=== PATIENT | female | born 1945 | race Caucasian/White ===

== ENCOUNTER 2019-03-14 10:34 | Outpatient (CLI) | payer MEDICARE, OTHER, SELFPAY | END 2019-03-14 10:35 | disposition home or self-care (01) | LOC: ANHLAB 10:39 | PROVIDERS: PCP Family Medicine; Visit Provider Physician Assistant | DX: R31.9 Hematuria, unspecified (principal) | CPT/HCPCS: 87086; 87088 ==

== ENCOUNTER 2019-03-21 12:20 | Emergency (ER) | payer MEDICARE, OTHER, SELFPAY ==
--- NOTE | ~2019-03-21 | XR_ITS ---
EXAMINATION: XR chest 2V EXAM DATE: 03/21/2019 12:51 INDICATION: Cough and shortness of breath. Nonproductive cough. TECHNIQUE: Frontal and lateral projections of the chest obtained and reviewed. Comparison is made to prior examination from 12/01/2018. FINDINGS: The lungs are clear. There are no pleural effusions. The cardiomediastinal silhouette is within normal limits. There is no pneumothorax suspected. The bones and soft tissues are unremarkab le. There are cholecystectomy clips. IMPRESSION: Unremarkable chest x-ray exam. Reviewed, dictated and finalized at location A. GER DIESEL
--- NOTE | 2019-03-21 12:33 | ED.URI ---
HPI - URI/Sore Throat General Chief Complaint: Upper Respiratory Infection Stated Complaint: cough/congestion Time Seen by Provider: 03/21/19 12:33 Source: patient and RN notes reviewed History of Present Illness HPI Narrative: Patient is a 73-year-old female presents the urgent care with complaints of persistent nonproductive cough for 10 days, congestion, intermittent shortness of breath with coughing fits and headache. Patient states she is also experienced a lot of sneezing. Patient is very adamant about ruling out pneumonia. Denies any chest pain or fever. Patient also started on the lisinopril on February 22 and states that she has not followed up with her PCP regarding the persistent cough. Patient also reports of moderate fatigue. Has been using Mucinex and Tylenol. No other acute complaints. No acute distress noted. Patient read the plan of care. Related Data Home Medications Medication Instructions Recorded Confirmed aspirin 81 mg tablet,delayed 81 mg PO DAILY 02/22/19 03/21/19 release sertraline 50 mg tablet 50 mg PO DAILY 02/22/19 03/21/19 Allergies Allergy/AdvReac Type Severity Reaction Status Date / Time No Known Allergies Allergy Verified 03/21/19 12:38 Review of Systems Review of Systems: Narrative: CONSTITUTIONAL: Denies fever, chills, or sweats. EYES: Denies visual changes, redness, or discharge. ENT: Reports a mild sore throat and sinus congestion CARDIOVASCULAR: Denies chest pain, palpitations, or edema. RESPIRATORY: Reports a persistent nonproductive cough with intermittent dyspnea during coughing fits GASTROINTESTINAL: Denies abdominal pain, nausea, vomiting, or diarrhea. GENITOURINARY: Denies dysuria or hematuria. SKIN: Denies rash or itching. MUSCULOSKELETAL: Denies back pain, joint pain, or myalgia. NEUROLOGIC: Reports of headache All other systems reviewed are negative, except as documented in HPI. [facility] Family History Family History (Updated 09/11/15 @ 23:21 by DOCTOR UNKNOWN) Sibling Patient's sister is in good health Patient's brother is in good health Family history of diabetes mellitus in first degree relative Family history of lung cancer Family history of malignant neoplasm of breast in first degree relative Father Family history of alcoholism Family history of coronary artery disease Mother Family history of pancreatic cancer Family history of diabetes mellitus in first degree relative Other Diabetes mellitus Hypertension Social History Social History Smoking status: Never smoker Smoking end date: 02/14/80 Alcohol intake: never Comments At the time of my signature, I reviewed and agree with the nursing past medical, surgical, social, and family history. There is no relevant family history pertinent to the patient complaint. Exam Narrative: Exam Narrative: GENERAL: This is a well-nourished, well-developed patient, in no apparent distress. HEAD: normocephalic, atraumatic. EYES: PERRL. Sclera clear/white. Vision is grossly intact. EARS: External ears normal, auditory canals clear and without drainage, bilateral cerumen noted, TMs normal without perforation. Hearing grossly intact. NOSE: External nose normal with no obvious nasal discharge, nares without redness, no rhinorrhea. THROAT: Mucous membranes moist, posterior pharynx clear. Moderate erythema noted posterior oropharynx without exudate or ulceration. NECK: Neck supple CARDIOVASCULAR: Regular rate and rhythm without murmurs, gallops, or rubs. RESPIRATORY: Clear to auscultation. Slightly diminished right lower lobe. No wheezes, rales, or rhonchi. SKIN: warm, intact with no suspicious lesions or rash, good texture and turgor. NEURO: awake, alert, and oriented to person, place and time. There were no obvious focal neurologic abnormalities. EXTREMITIES: No clubbing, cyanosis, or edema. Course Vital Signs Vital signs: Vital Signs Temperature 99.2 F 03/21/19 12:35 Pulse Rate 73 03/21
[2019-03-21 12:35] VITALS: BP 136/50; PULSE 73; RESP 20; TEMP 37.3; O2SAT 96
== END 2019-03-21 13:14 | disposition home or self-care (01) ==
PROVIDERS: Emergency Provider Nurse Practitioner Family; PCP Family Medicine
DX: T46.4X5A Adverse effect of angiotensin-converting-enzyme inhibitors, initial encounter (principal); I10 Essential (primary) hypertension
CPT/HCPCS: 71046; 99213; G0463

== ENCOUNTER 2019-06-06 12:11 | Emergency (ER) | payer MEDICARE, OTHER, SELFPAY ==
--- NOTE | ~2019-06-06 | XR_ITS ---
EXAMINATION: XR chest 1V portable INDICATION: Shortness of breath and fever TECHNIQUE: Portable AP chest at 1306 hours COMPARISON: 03/21/2019 FINDINGS: The lungs are free of acute opacities. There is no pleural effusion or pneumothorax. The ca rdiomediastinal silhouette is normal. The visualized osseous structures are unremarkable. Cholecystec yamilex clips are noted in the right upper quadrant. IMPRESSION: 1. No acute cardiopulmonary abnormality. Reviewed, dictated and finalized at location A.
[2019-06-06 12:17] VITALS: BP 154/85; PULSE 94; RESP 18; TEMP 36.9; O2SAT 98
[2019-06-06 12:23] VITALS: RESP 16
--- NOTE | 2019-06-06 12:50 | ED.SOB ---
HPI - SOB/Dyspnea General Chief Complaint: Shortness of Breath/Dyspnea Stated Complaint: cough, short of breath, sore throat, pneumonia Time Seen by Provider: 06/06/19 12:22 Source: patient Mode of arrival: ambulatory Limitations: no limitations History of Present Illness HPI Narrative: This is a 73 year old female that presents to the ER for cough and shortness of breath x 1 week. Reports a cough a couple of weeks ago for which she was treated with antibiotics with improvement. Reports again last week she had a fever and then started to have a cough. Reports associated shortness of breath and a sore throat. Denies chest pain, abdominal pain, vomiting, dysuria or hematuria. Related Data Home Medications Medication Instructions Recorded Confirmed aspirin 81 mg tablet,delayed 81 mg PO DAILY 02/22/19 03/21/19 release multivitamin 1 tablet PO DAILY 04/09/19 gabapentin 100 mg capsule 100 mg PO TID 05/29/19 Allergies Allergy/AdvReac Type Severity Reaction Status Date / Time HERMINIA Inhibitors AdvReac Mild cough Verified 06/06/19 12:21 Review of Systems Review of Systems: Narrative: CONSTITUTIONAL: Reports fever ENT: Reports rhinorrhea, congestion, sore throat CARDIOVASCULAR: Denies chest pain RESPIRATORY: Reports cough and dyspnea. GASTROINTESTINAL: Denies abdominal pain, nausea, vomiting, or diarrhea. GENITOURINARY: Denies dysuria or hematuria. All systems reviewed & are unremarkable except as noted in HPI and below PMFSH Past Medical History Medical History (Updated 06/06/19 @ 14:23 by Ilana Pritchett PA-C) Anxiety HTN (hypertension) RLS (restless legs syndrome) Surgical History Surgical History (Updated 04/10/19 @ 10:08 by Drake Briones MD) History of cholecystectomy History of hysterectomy with bilateral oophorectomy Status post right hip replacement Social History Social History Smoking packs per day: 1 Smoking cigarettes per day: 20.0 Years smoked: 8 Smoking pack-years: 8.00 Smoking status: Former smoker Tobacco type: cigarettes Second hand tobacco smoke exposure: No Smoking end date: 02/14/80 Alcohol intake: never Substance use: never Substance use type: does not use Gender identity (if verbalized by the patient): Female Exam Narrative: Exam Narrative: GENERAL: Elderly, well-nourished, and in no acute distress. HEAD: Normocephalic, atraumatic. EYES: EOMI. ENT: Nares clear, no rhinorrhea or epistaxis. Mucous membranes moist. Oropharynx without tonsillar hypertrophy exudate or other lesions. Bilateral TMs pearly arzate non-bulging NECK: Supple. No adenopathy or masses. CHEST: No respiratory distress. Mild scattered wheezes. No rales or rhonchi HEART: Regular rate and rhythm. No murmur heard. Normal peripheral pulses. EXTREMITIES: Normal range of motion. No edema. SKIN: Warm, dry, no rash. NEURO: No focal deficits. Alert and oriented x3. PSYCH: Normal mood and affect Course Vital Signs Vital signs: Vital Signs Temperature 98.5 F 06/06/19 12:17 Pulse Rate 94 06/06/19 12:17 Respiratory Rate 18 06/06/19 12:17 Blood Pressure 154/85 H 06/06/19 12:17 Pulse Oximetry 98 06/06/19 12:17 Temperature 98.5 F 06/06/19 12:17 Pulse Rate 94 06/06/19 12:17 Respiratory Rate 16 06/06/19 12:23 Blood Pressure 154/85 H 06/06/19 12:17 Pulse Oximetry 98 06/06/19 12:17 MDM - SOB/Dyspnea MDM Narrative Medical decision making narrative: Patient presents to the emergency department for cough and shortness of breath x1 week. Patient is afebrile and nontoxic-appearing. Normal saturation on room air. CBC and metabolic panel are without acute changes. Chest x-ray is without acute findings. Patient does have some mild wheezes on exam. Will treat patient with steroid and albuterol for acute bronchitis. She is to follow-up with primary care doctor. She was given warnings to return to the ER Lab Data At
[2019-06-06 13:22] LABS: Basophils Percent Auto 0.4 % (0.2-1.2); Eosinophils Absolute Auto 0.3 K/mm3 (0-0.3); Hematocrit 38.9 % (37.0-47.0); Hemoglobin 13.3 g/dL (12.0-15.0); Immature Granulocyte Absolute 0.04 K/mm3 (0.00-0.031); Immature Granulocyte Percent A 0.5 % (0-0.5); Lymphocytes Percent Auto 35.9 % (18.3-44.2); Mean Corpuscular HGB Conc 34.2 g/dl (32-36); Mean Corpuscular Hemoglobin 29.6 pg (26-34); Mean Corpuscular Volume 86.4 fl (80-100); Mean Platelet Volume 9.9 fl (7.4-10.4); Monocytes Absolute Auto 0.6 K/mm3 (0.1-0.6); Monocytes Percent Auto 7.4 % (2.6-8.5); Neutrophils Absolute Auto 4.4 K/mm3 (1.3-6.7); Neutrophils Percent Auto 52.8 % (45.5-73.1); Platelet Count Result 280 k/mm3 (150-375); Red Cell Distribution Width 12.5 % (11.5-14.5); White Blood Count 8.4 K/mm3 (4.5-10.0)
[2019-06-06 13:38] LABS: Alanine Aminotransferase 28 U/L (4-35); Albumin Level 4.2 g/dL (3.5-5.1); Alkaline Phosphatase 149 U/L (38-126); Aspartate Amino Transferase 29 U/L (14-36); Bilirubin,Total 0.5 mg/dL (0.2-1.3); Blood Urea Nitrogen 22 mg/dL (7-17); CRP 1.2 mg/dL (<1.0); Calcium 8.8 mg/dL (8.4-10.2); Carbon Dioxide 23 mmol/L (22-30); Chloride 109 mmol/L (98-107); Estimated CRCL calculation 82 ml/min; Estimated Glomerular Filt Rate > 60; Glucose 121 mg/dL (65-105); Lactate Dehydrogenase 427 U/L (313-618); Potassium 3.6 mmol/L (3.4-5.0); Sodium 140 mmol/L (137-145)
[2019-06-06 13:40] LABS: Lactic Acid Reflex 1.8 mmol/L (0.7-2.1)
[2019-06-06 14:48] VITALS: BP 147/75; PULSE 74; RESP 16; O2SAT 97
== END 2019-06-06 14:50 | disposition home or self-care (01) ==
PROVIDERS: Physician Assistant; Emergency Provider Emergency Medicine; PCP Family Medicine
DX: J20.9 Acute bronchitis, unspecified (principal); Z79.82 Long term (current) use of aspirin; I10 Essential (primary) hypertension; G25.81 Restless legs syndrome; Z96.641 Presence of right artificial hip joint; Z87.891 Personal history of nicotine dependence
CPT/HCPCS: 36415; 71045; 80053; 82728; 83605; 83615; 85025; 86140; 99284

== ENCOUNTER 2019-08-28 10:21 | Outpatient (CLI) | payer MEDICARE, OTHER, SELFPAY ==
[2019-08-28 11:09] LABS: Erythrocyte Sedimentation Rate 16 mm/hr (0-20)
[2019-08-28 11:16] LABS: Rheumatoid Factor < 8.6 IU/ML (<12)
== END 2019-08-28 10:22 | disposition home or self-care (01) ==
PROVIDERS: PCP Family Medicine; Visit Provider Physician Assistant
DX: M25.50 Pain in unspecified joint (principal); R53.83 Other fatigue
CPT/HCPCS: 36415; 85652; 86038; 86430

== ENCOUNTER 2019-11-20 10:33 | Outpatient (CLI) | payer MEDICARE, OTHER, SELFPAY | END 2019-11-20 10:34 | disposition home or self-care (01) | PROVIDERS: PCP Family Medicine; Visit Provider Physician Assistant | DX: N39.0 Urinary tract infection, site not specified (principal) | CPT/HCPCS: 87086; 87088 ==

== ENCOUNTER 2019-12-19 11:45 | Outpatient (NON) | payer MEDICARE, OTHER, SELFPAY ==
[2019-12-19 21:15] LABS: SARS-CoV-2 RNA PCR Positive
== END 2019-12-19 11:46 ==
PROVIDERS: PCP Family Medicine; Visit Provider Physician Assistant
DX: U07.1 COVID-19 (principal)
CPT/HCPCS: 87635; C9803; U0003

== ENCOUNTER 2019-12-21 10:28 | Emergency (ER) | payer MEDICARE, OTHER, SELFPAY ==
[2019-12-21] VITALS (23 sets, daily range): BP systolic 128–171; BP diastolic 61–146; PULSE 60–71; RESP 7–17; TEMP 36.8; O2SAT 83–98
--- NOTE | ~2019-12-21 | XR_ITS ---
EXAMINATION: XR chest 1V portable INDICATION: Shortness of breath, COVID 19 positive TECHNIQUE: Portable AP chest at 1131 hours COMPARISON: 06/06/2019 FINDINGS: There are patchy airspace opacities throughout all lung zones. No pleural effusion or pneum othorax is identified. The cardiomediastinal silhouette is stable. IMPRESSION: 1. Diffuse lung disease, consistent with pneumonia. Reviewed, dictated and finalized at location A. RING SHED WORKER
--- NOTE | 2019-12-21 11:48 | ECG_ITS ---
Measurements Intervals [place] Rate: 60 P: 55 NV: 157 QRS: 3 QRSD: 83 T: 20 QT: 404 QTc: 404 Interpretive Statements SINUS RHYTHM VOLTAGE CRITERIA FOR LVH BASELINE ARTIFACT- II, III BORDERLINE ECG Electronically Signed On 12-21-2019 16:07:51 CORRESPONDENT by Moe Sheikh D.O.
[2019-12-21] MEDS: MORPHINE SULFATE (*CRX) 4 MG/ML INJ IV PUSH (11:52)
[2019-12-21] MEDS: ONDANSETRON INJ 4 MG/2 ML VIAL IV PUSH (11:53)
--- NOTE | 2019-12-21 11:55 | PC.NURSE ---
medications given per order. ekg completed. pt conversing with ease. no distress noted.
[2019-12-21 12:07] LABS: Basophils Percent Auto 0.3 % (0.2-1.2); Eosinophils Percent Auto 0.1 % (0-4.4); Hematocrit 41.9 % (37.0-47.0); Hemoglobin 14.4 g/dL (12.0-15.0); Immature Granulocyte Absolute 0.03 K/mm3 (0.00-0.031); Immature Granulocyte Percent A 0.3 % (0-0.5); Lymphocytes Absolute Auto 2.33 K/mm3 (0.9-3.2); Lymphocytes Percent Auto 25.3 % (18.3-44.2); Mean Corpuscular HGB Conc 34.4 g/dl (32-36); Mean Corpuscular Volume 87.3 fl (80-100); Mean Platelet Volume 9.4 fl (7.4-10.4); Neutrophils Absolute Auto 5.8 K/mm3 (1.3-6.7); Platelet Count Result 285 k/mm3 (150-375); Red Cell Distribution Width 12.2 % (11.5-14.5); White Blood Count 9.2 K/mm3 (4.5-10.0)
[2019-12-21 12:15] LABS: Alanine Aminotransferase 82 U/L (4-35); Albumin Level 4.4 g/dL (3.5-5.1); Alkaline Phosphatase 115 U/L (38-126); Anion Gap 12 mmol/L (8-16); Aspartate Amino Transferase 80 U/L (14-36); Bilirubin,Total 0.8 mg/dL (0.2-1.3); Blood Urea Nitrogen 21 mg/dL (7-17); Calcium 9.1 mg/dL (8.4-10.2); Carbon Dioxide 23 mmol/L (22-30); Chloride 103 mmol/L (98-107); Estimated CRCL calculation 83 ml/min; Estimated Glomerular Filt Rate > 60; Glucose 98 mg/dL (65-105); Lipase 112 U/L (23-300); Potassium 4.1 mmol/L (3.4-5.0); Sodium 138 mmol/L (137-145)
--- NOTE | 2019-12-21 13:18 | ED.GENADULT ---
HPI - General Adult General Chief complaint: Shortness of Breath/Dyspnea Stated complaint: COVID + sob CHEST PAIN Time Seen by Provider: 12/21/19 10:40 History of Present Illness HPI narrative: Patient is a 74-year-old female who presents ER with complaints of shortness of breath and some abdominal discomfort. Patient initially said she had chest pain but when she points to where her pain is located in her left upper quadrant of her abdomen. Associate with some nausea. She had some loose stools. She initially started feeling ill on 12/17/2019. She tested positive for Covid just 2 days ago. She recently traveled to [place] and had eaten out at restaurants down there. No known sick contacts here. No alleviating factors that she is noted. Patient has been taking Tessalon Perles has been on a steroid Dosepak since receiving her diagnosis. Related Data Home Medications Medication Instructions Recorded Confirmed aspirin 81 mg tablet,delayed 81 mg PO DAILY 02/22/19 12/18/19 release multivitamin 1 tablet PO DAILY 04/09/19 12/18/19 ropinirole 0.5 mg tablet 2 mg PO .qhs tablet 07/16/19 12/18/19 clonazepam 0.5 mg disintegrating 0.5 mg PO DAILY 12/18/19 12/18/19 tablet sertraline mg DAILY 12/21/19 Allergies Allergy/AdvReac Type Severity Reaction Status Date / Time No Known Allergies Allergy Verified 12/21/19 10:53 Review of Systems Review of Systems: All systems reviewed & are unremarkable except as noted in HPI and below Constitutional: Constitutional: Denies chills, Reports fever(s) and Reports weakness ENT: Reports nasal congestion and Reports sore throat Cardiovascular: Cardiovascular: Denies chest pain, Denies rapid heart rate and Denies radiating jaw, neck or arm pain Respiratory: Respiratory: Reports cough, Reports dyspnea and Denies wheezing Gastrointestinal: Gastrointestinal: Reports abdominal pain, Reports diarrhea, Reports nausea and Denies vomiting Musculoskeletal: Musculoskeletal: Reports myalgias PMFSH Past Medical History Medical History Anxiety HTN (hypertension) RLS (restless legs syndrome) Surgical History Surgical History History of cholecystectomy History of hysterectomy with bilateral oophorectomy Status post right hip replacement Family History Family History Sibling Patient's sister is in good health Patient's brother is in good health Family history of diabetes mellitus in first degree relative Family history of lung cancer Family history of malignant neoplasm of breast in first degree relative Father Family history of alcoholism Family history of coronary artery disease Mother Family history of pancreatic cancer Family history of diabetes mellitus in first degree relative Other Diabetes mellitus Hypertension Social History Social History Smoking packs per day: 1 Smoking cigarettes per day: 20.0 Years smoked: 8 Smoking pack-years: 8.00 Smoking status: Former smoker Tobacco type: cigarettes Second hand tobacco smoke exposure: No Smoking end date: 02/14/80 Alcohol intake: never Substance use: never Substance use type: does not use Gender identity (if verbalized by the patient): Female Exam Narrative: Exam Narrative: GENERAL: Well-appearing, well-nourished, and in no acute distress. HEAD: Normocephalic, atraumatic. CHEST: Clear to auscultation. No respiratory distress. HEART: Regular rate and rhythm. Normal peripheral pulses. ABDOMEN: Soft, nontender, nondistended. EXTREMITIES: Normal range of motion. No edema. SKIN: Warm, dry, no rash. NEURO: Alert and oriented x3. PSYCH: Normal mood and affect. Course Course Emergency Course: No hypoxia in the ER. Discussed results. Discharge home with azithromycin. Vital Signs
== END 2019-12-21 14:28 | disposition home or self-care (01) ==
PROVIDERS: Emergency Provider Emergency Medicine; PCP Family Medicine
DX: U07.1 COVID-19 (principal); J12.89 Other viral pneumonia; F41.9 Anxiety disorder, unspecified; I10 Essential (primary) hypertension; G25.81 Restless legs syndrome; Z79.82 Long term (current) use of aspirin; Z96.641 Presence of right artificial hip joint; Z87.891 Personal history of nicotine dependence; R94.31 Abnormal electrocardiogram [ECG] [EKG]
CPT/HCPCS: 36415; 71045; 80053; 83690; 85025; 93005; 96374; 96375; 99284; J2270; J2405

== ENCOUNTER 2020-01-02 08:00 | Outpatient (CLI) | payer MEDICARE, OTHER, SELFPAY ==
--- NOTE | ~2020-01-02 | MM_ITS ---
EXAMINATION: MM screening [facility] BI w nav HISTORY: Screening mammogram TECHNIQUE: Craniocaudal and mediolateral oblique 3-D tomosynthesis images were obtained and synthetic 2-D images were generated. CAD analysis was submitted and interpreted. COMPARISON: 12/10/2018, 12/08/2017, 12/02/2016 BREAST PARENCHYMAL COMPOSITION: There are scattered areas of fibroglandular density. FINDINGS: There are multiple similar appearing bilateral breast masses, none of which demonstrate kylie picious interval change. There is no evidence of suspicious mass, calcification, or architectural dis tortion to suggest malignancy in either breast. There has been no suspicious interval change. IMPRESSION: 1. No mammographic evidence of malignancy. 2. Recommend routine screening mammography in one year. BI-RADS Category 2: Benign finding(s). Reviewed, dictated and finalized at location A. RECREATION ASSISTANT
== END 2020-01-02 08:01 | disposition home or self-care (01) ==
PROVIDERS: PCP Family Medicine; Visit Provider Family Medicine
DX: Z12.31 Encounter for screening mammogram for malignant neoplasm of breast (principal)
CPT/HCPCS: 77063; 77067

== ENCOUNTER 2020-01-22 07:31 | Outpatient (CLI) | payer MEDICARE, OTHER, SELFPAY ==
[2020-01-22 08:11] LABS: Alanine Aminotransferase 25 U/L (4-35); Alkaline Phosphatase 131 U/L (38-126); Anion Gap 3 mmol/L (8-16); Aspartate Amino Transferase 28 U/L (14-36); Bilirubin,Total 0.5 mg/dL (0.2-1.3); Blood Urea Nitrogen 19 mg/dL (7-17); Calcium 8.8 mg/dL (8.4-10.2); Carbon Dioxide 24 mmol/L (22-30); Chloride 109 mmol/L (98-107); Cholesterol 175 mg/dL (0-200); Estimated Glomerular Filt Rate > 60; Glucose 106 mg/dL (65-105); HDL Direct 37 mg/dL; Potassium 4.2 mmol/L (3.4-5.0); Sodium 136 mmol/L (137-145); Triglycerides 213 mg/dL (<150)
[2020-01-22 08:21] LABS: LDL Cholesterol Direct 104 mg/dL
== END 2020-01-22 07:32 | disposition home or self-care (01) ==
PROVIDERS: PCP Family Medicine; Visit Provider Family Medicine
DX: E78.1 Pure hyperglyceridemia (principal); I10 Essential (primary) hypertension
CPT/HCPCS: 36415; 80053; 80061

== ENCOUNTER 2020-06-23 10:20 | Outpatient (CLI) | payer MEDICARE, OTHER, SELFPAY ==
[2020-06-23 10:50] LABS: Add Urine Microscopic? NO; Appearance Urine Clear (Clear); Bilirubin Urine Negative (Negative); Blood Urine Negative (Negative); Color Urine Yellow (Yellow); Glucose Urine UA Negative (Negative); Ketones Urine Negative (Negative); Leukocyte Esterase Ur Negative LEU/UL (NEGATIVE); Nitrate Urine Negative (Negative); Protein Urine Negative (Negative); Specific Grav Ur 1.021 (1.001-1.035); Urobilinogen Urine Negative mg/dL (<2.0)
== END 2020-06-23 10:21 | disposition home or self-care (01) ==
PROVIDERS: PCP Family Medicine; Visit Provider Physician Assistant
DX: R32 Unspecified urinary incontinence (principal); R35.0 Frequency of micturition
CPT/HCPCS: 81003; 87086

== ENCOUNTER 2020-07-15 09:18 | Outpatient (CLI) | payer MEDICARE, OTHER, SELFPAY ==
[2020-07-15 09:37] LABS: Basophils Absolute Auto 0.1 K/mm3 (0.0-0.1); Basophils Percent Auto 0.7 % (0.2-1.2); Eosinophils Absolute Auto 0.4 K/mm3 (0-0.3); Eosinophils Percent Auto 4.3 % (0-4.4); Hematocrit 41.9 % (37.0-47.0); Hemoglobin 14.5 g/dL (12.0-15.0); Immature Granulocyte Absolute 0.04 K/mm3 (0.00-0.031); Immature Granulocyte Percent A 0.4 % (0-0.5); Lymphocytes Absolute Auto 2.76 K/mm3 (0.9-3.2); Lymphocytes Percent Auto 28.7 % (18.3-44.2); Mean Corpuscular HGB Conc 34.6 g/dl (32-36); Mean Corpuscular Hemoglobin 29.8 pg (26-34); Mean Corpuscular Volume 86.2 fl (80-100); Mean Platelet Volume 9.1 fl (7.4-10.4); Monocytes Absolute Auto 0.8 K/mm3 (0.1-0.6); Monocytes Percent Auto 8.3 % (2.6-8.5); Neutrophils Absolute Auto 5.5 K/mm3 (1.3-6.7); Neutrophils Percent Auto 57.6 % (45.5-73.1); Platelet Count Result 285 k/mm3 (150-375); Red Blood Count 4.86 M/mm3 (4.2-5.4); Red Cell Distribution Width 12.6 % (11.5-14.5); White Blood Count 9.6 K/mm3 (4.5-10.0)
[2020-07-15 09:55] LABS: Alanine Aminotransferase 28 U/L (4-35); Albumin Level 4.4 g/dL (3.5-5.1); Alkaline Phosphatase 135 U/L (38-126); Amylase 55 U/L (30-110); Anion Gap 9 mmol/L (8-16); Aspartate Amino Transferase 39 U/L (14-36); Bilirubin,Total 0.8 mg/dL (0.2-1.3); Blood Urea Nitrogen 16 mg/dL (7-17); Calcium 9.6 mg/dL (8.4-10.2); Carbon Dioxide 26 mmol/L (22-30); Chloride 107 mmol/L (98-107); Estimated Glomerular Filt Rate > 60; Glucose 100 mg/dL (65-105); Lipase 108 U/L (23-300); Potassium 4.4 mmol/L (3.4-5.0); Sodium 142 mmol/L (137-145)
== END 2020-07-15 09:19 | disposition home or self-care (01) ==
PROVIDERS: PCP Family Medicine; Visit Provider Family Medicine
DX: R10.9 Unspecified abdominal pain (principal); I10 Essential (primary) hypertension
CPT/HCPCS: 36415; 80053; 82150; 83690; 85025

== ENCOUNTER → 2020-07-24 10:02 | Outpatient (CLI) | payer MEDICARE, OTHER, SELFPAY ==
--- NOTE | ~2020-07-24 | US_ITS ---
US abdomen limited INDICATION: Right upper quadrant pain PROCEDURE: Realtime right upper abdominal ultrasound. COMPARISON: No prior studies for comparison. FINDINGS: The pancreas is normal without focal mass or pancreatic ductal dilation. Liver echotexture is increased, consistent with hepatic steatosis. There is normal directional flow in the portal vein . Gallbladder is surgically absent. Common bile duct measures 6 mm. No sonographic Owens's sign. IMPRESSION: 1: Fatty infiltration of the liver. Reviewed, dictated and finalized at location B.
== END ==
PROVIDERS: PCP Family Medicine; Visit Provider Family Medicine
DX: R10.9 Unspecified abdominal pain (principal); K76.0 Fatty (change of) liver, not elsewhere classified
CPT/HCPCS: 76705

== ENCOUNTER → 2020-08-17 00:08 | Outpatient (CLI) | payer MEDICARE, OTHER, SELFPAY ==
[2020-08-17 15:56] LABS: SARS-CoV-2 RNA PCR Negative
== END ==
PROVIDERS: PCP Family Medicine; Visit Provider Internal Medicine Gastroenterology
DX: Z01.812 Encounter for preprocedural laboratory examination (principal); Z20.822 Contact with and (suspected) exposure to COVID-19
CPT/HCPCS: C9803; U0003; U0005

== ENCOUNTER 2020-08-20 01:46 | Day surgery (SDC) | payer MEDICARE, OTHER, SELFPAY ==
[2020-08-05 13:48] VITALS: BMI 28.9
[2020-08-20 08:06] VITALS: BP 145/52; PULSE 66; RESP 18; TEMP 36.8; O2SAT 99; BMI 29.8
[2020-08-20] MEDS: LACTATED RINGERS 1,000 ML 150 ML IV CONT (08:22)
--- NOTE | 2020-08-20 08:45 | WPDANESEPPF ---
Anes - Initial Pre Proc Eval Procedure: Operation Date: 08/20/20 09:30 Proposed Procedures p Esophagogastroduodenoscopy - Peter Murguia MD Date/Time: 08/20/20 08:45 Surgeon: Peter Murguia MD Pre Op Diagnosis: abdominal pain Patient Data Age: 74 Gender: F Height: 1.6 m Weight: 76.4 kg Last Vital Signs Temp 36.8 C 08/20/20 08:06 Pulse 66 08/20/20 08:06 Resp 18 08/20/20 08:06 BP 145/52 H 08/20/20 08:06 Pulse Ox 99 08/20/20 08:06 Allergies Allergy/AdvReac Type Severity Reaction Status Date / Time No Known Allergies Allergy Verified 08/20/20 08:05 Home Medications Medication Instructions Recorded Confirmed Type aspirin 81 mg tablet,delayed 81 mg PO DAILY 02/22/19 08/05/20 History release multivitamin 1 tablet PO DAILY 04/09/19 08/05/20 History ropinirole 0.5 mg tablet 1 mg PO HS PRN tablet 07/16/19 08/05/20 History clonazepam 0.5 mg disintegrating 0.5 mg PO DAILY PRN 12/18/19 08/05/20 History tablet sertraline 50 mg PO DAILY 12/21/19 08/05/20 History amlodipine 5 mg tablet 5 mg PO DAILY #90 tablet 07/30/20 08/05/20 Rx Patient hx anesthesia problems: none Family hx anesthesia problems: none PMFSH Past Medical History Medical History Anxiety HTN (hypertension) RLS (restless legs syndrome) Surgical History Surgical History History of cholecystectomy History of hysterectomy with bilateral oophorectomy Status post right hip replacement Family History Family History Sibling Patient's sister is in good health Patient's brother is in good health Family history of diabetes mellitus in first degree relative Family history of lung cancer Family history of malignant neoplasm of breast in first degree relative Father Family history of alcoholism Family history of coronary artery disease Mother Family history of pancreatic cancer Family history of diabetes mellitus in first degree relative Other Diabetes mellitus Hypertension Social History Social History Smoking packs per day: 1 Smoking cigarettes per day: 20.0 Years smoked: 10 Smoking pack-years: 10.00 Smoking status: Former smoker Tobacco type: cigarettes Second hand tobacco smoke exposure: No Smoking end date: 02/14/80 Alcohol intake: never Substance use: never Substance use type: does not use Living arrangements: alone Gender identity (if verbalized by the patient): Female Spiritual care concerns: No Anes - Eval Final PreProcedure Day of Procedure 08/20/20 08:45 Patient weight: overweight Heart: regular rate and rhythm Lungs: clear to auscultation Airway: Mallampati scale class II Neurological: alert and oriented Last oral intake: >/= 8 hours ASA classification: II Emergent: no Anesthetic plan: proceed Anesthesia type and monitoring: general GIVS and standard monitoring Informed Consent: The patient's anesthetic plan and its attendant risks and benefits were discussed with the patient/family/POA. Questions were solicited and answers provided to the satisfaction of the patient/family/POA.
--- NOTE | 2020-08-20 09:29 | PM.HPGS ---
History of Present Illness History of Present Illness Consent: Risks, benefits, and alternatives have been discussed and questions answered. Patient agrees to proceed with procedure. Chief complaint: abdominal pain Narrative: Robyn Pimentel is a 74 year old female referred for investigation of early satiety and other symptoms. For the past few months, when she begins eating she gets full after just a few bites. She has not lost weight. She attributes that to the fact that she returns to try to finish a meal. She has had no vomiting. She has had a great deal of abdominal distension belching and flatulence. This all began about the same time when she was under a significant amount of stress. Other than aspirin she does not take NSAIDs regularly Review of Systems Review of Systems: All systems reviewed & are unremarkable except as noted in HPI and below PMFSH Past Medical History Medical History Anxiety HTN (hypertension) RLS (restless legs syndrome) Surgical History Surgical History History of cholecystectomy History of hysterectomy with bilateral oophorectomy Status post right hip replacement Family History Family History Sibling Patient's sister is in good health Patient's brother is in good health Family history of diabetes mellitus in first degree relative Family history of lung cancer Family history of malignant neoplasm of breast in first degree relative Father Family history of alcoholism Family history of coronary artery disease Mother Family history of pancreatic cancer Family history of diabetes mellitus in first degree relative Other Diabetes mellitus Hypertension Social History Social History Smoking packs per day: 1 Smoking cigarettes per day: 20.0 Years smoked: 10 Smoking pack-years: 10.00 Smoking status: Former smoker Tobacco type: cigarettes Second hand tobacco smoke exposure: No Smoking end date: 02/14/80 Alcohol intake: never Substance use: never Substance use type: does not use Living arrangements: alone Gender identity (if verbalized by the patient): Female Spiritual care concerns: No Meds Home Medications and Allergies Home Medications Medication Instructions Recorded Confirmed Type aspirin 81 mg tablet,delayed 81 mg PO DAILY 02/22/19 08/05/20 History release multivitamin 1 tablet PO DAILY 04/09/19 08/05/20 History ropinirole 0.5 mg tablet 1 mg PO HS PRN tablet 07/16/19 08/05/20 History clonazepam 0.5 mg disintegrating 0.5 mg PO DAILY PRN 12/18/19 08/05/20 History tablet sertraline 50 mg PO DAILY 12/21/19 08/05/20 History amlodipine 5 mg tablet 5 mg PO DAILY #90 tablet 07/30/20 08/05/20 Rx Allergies Allergy/AdvReac Type Severity Reaction Status Date / Time No Known Allergies Allergy Verified 08/20/20 08:05 Vital Signs Vital Signs - 24 hr 08/20/20 08:06 Temperature 36.8 C Pulse Rate 66 Respiratory Rate 18 Blood Pressure 145/52 H Pulse Oximetry 99 Exam Const: General: alert Orientation/consciousness: patient oriented x3 Resp: Auscultation: clear to auscultation bilaterally Cardio: Rhythm: regular rhythm GI: GI Palp: Yes Soft to palpation and No Tenderness to palpation present (GI) Neuro: General: patient oriented x3 Assessment and Plan Assessment and plan (1) Early satiety: Code(s): R68.81 - Early satiety Status: Acute Assessment and Plan: EGD with possible biopsy or dilatation or cautery.
[2020-08-20 09:51] VITALS: BP 129/63; PULSE 70; RESP 19; O2SAT 95
[2020-08-20 10:01] VITALS: BP 159/80; PULSE 65; RESP 24; O2SAT 99
[2020-08-20 10:11] VITALS: BP 149/68; PULSE 60; RESP 22; O2SAT 97
== END 2020-08-20 10:25 | disposition home or self-care (01) ==
PROVIDERS: PCP Family Medicine; Visit Provider Internal Medicine Gastroenterology
PROC: 0DJ08ZZ Inspection of Upper Intestinal Tract, Via Natural or Artificial Opening Endoscopic (ICD-10-PCS; CPT 43235; principal; 2020-08-20 09:30)
DX: K21.00 Gastro-esophageal reflux disease with esophagitis, without bleeding (principal); K29.70 Gastritis, unspecified, without bleeding; R68.81 Early satiety; I10 Essential (primary) hypertension; G25.81 Restless legs syndrome; F41.9 Anxiety disorder, unspecified; Z87.891 Personal history of nicotine dependence
CPT/HCPCS: 43239; 87081; 88305; J2704; J7120

== ENCOUNTER 2021-01-04 11:47 | Outpatient (CLI) | payer MEDICARE, OTHER, SELFPAY ==
--- NOTE | ~2021-01-04 | MM_ITS ---
EXAMINATION: MM screening [facility] BI w nav HISTORY: Screening mammogram, family history of breast cancer in her sister. TECHNIQUE: Craniocaudal and mediolateral oblique 3-D tomosynthesis images were obtained and synthetic 2-D images were generated. CAD analysis was submitted and interpreted. COMPARISON: 01/02/2020, 12/10/2018, 12/08/2017 BREAST PARENCHYMAL COMPOSITION: There are scattered areas of fibroglandular density. FINDINGS: Multiple stable bilateral breast masses are again noted, consistent with benign findings. T here is no evidence of suspicious mass, calcification, or architectural distortion to suggest maligna ncy in either breast. There has been no suspicious interval change. IMPRESSION: 1. No mammographic evidence of malignancy. 2. Recommend routine screening mammography in one year. BI-RADS Category 2: Benign finding(s). Reviewed, dictated and finalized at location A. LIANCE VICE PRESIDENT
== END 2021-01-04 11:48 | disposition home or self-care (01) ==
PROVIDERS: PCP Family Medicine; Visit Provider Family Medicine
DX: Z12.31 Encounter for screening mammogram for malignant neoplasm of breast (principal)
CPT/HCPCS: 77063; 77067

== ENCOUNTER 2021-02-09 08:33 | Outpatient (CLI) | payer MEDICARE, OTHER, SELFPAY ==
[2021-02-09 09:00] LABS: Hematocrit 41.4 % (37.0-47.0); Hemoglobin 14.4 g/dL (12.0-15.0); Mean Corpuscular HGB Conc 34.8 g/dl (32-36); Mean Corpuscular Hemoglobin 30.4 pg (26-34); Mean Corpuscular Volume 87.3 fl (80-100); Mean Platelet Volume 9.1 fl (7.4-10.4); Platelet Count Result 270 k/mm3 (150-375); Red Blood Count 4.74 M/mm3 (4.2-5.4); Red Cell Distribution Width 12.4 % (11.5-14.5); White Blood Count 9.8 K/mm3 (4.5-10.0)
[2021-02-09 09:09] LABS: Add Urine Microscopic? YES; Appearance Urine Clear (Clear); Bilirubin Urine Negative (Negative); Blood Urine Negative (Negative); Color Urine Yellow (Yellow); Glucose Urine UA Negative (Negative); Ketones Urine Negative (Negative); Leukocyte Esterase Ur Trace LEU/UL (NEGATIVE); Mucus Urine Rare /lpf; Nitrate Urine Negative (Negative); Protein Urine Negative (Negative); RBC Urine 0-2 /hpf (0-2); Squamous Epithelial Cell Urine Moderate /hpf (Few); Urobilinogen Urine Negative mg/dL (<2.0); WBC Urine 0-3 /hpf (0-3)
[2021-02-09 09:16] LABS: Alanine Aminotransferase 21 U/L (4-35); Albumin Level 4.6 g/dL (3.5-5.1); Alkaline Phosphatase 146 U/L (38-126); Anion Gap 4 mmol/L (8-16); Aspartate Amino Transferase 23 U/L (14-36); Bilirubin,Total 0.7 mg/dL (0.2-1.3); Blood Urea Nitrogen 20 mg/dL (7-17); Calcium 9.2 mg/dL (8.4-10.2); Carbon Dioxide 23 mmol/L (22-30); Chloride 108 mmol/L (98-107); Cholesterol 219 mg/dL (0-200); Estimated Glomerular Filt Rate > 60; Glucose 113 mg/dL (65-110); HDL Direct 48 mg/dL; Sodium 135 mmol/L (137-145); Triglycerides 200 mg/dL (<150)
[2021-02-09 09:19] LABS: Rheumatoid Factor < 8.6 IU/ML (<12)
[2021-02-09 09:27] LABS: LDL Cholesterol Direct 131 mg/dL
== END 2021-02-09 08:34 | disposition home or self-care (01) ==
PROVIDERS: PCP Family Medicine; Visit Provider Family Medicine
DX: E78.1 Pure hyperglyceridemia (principal); I10 Essential (primary) hypertension; M25.50 Pain in unspecified joint; R53.83 Other fatigue
CPT/HCPCS: 36415; 80053; 80061; 81001; 84443; 85027; 86430

== ENCOUNTER → 2021-05-04 00:25 | Outpatient (CLI) | payer MEDICARE, OTHER, SELFPAY ==
[2021-05-04 12:58] LABS: SARS-CoV-2 RNA PCR Negative
== END ==
PROVIDERS: PCP Family Medicine; Visit Provider Podiatrist Foot & Ankle Surgery
DX: Z01.812 Encounter for preprocedural laboratory examination (principal); Z20.822 Contact with and (suspected) exposure to COVID-19
CPT/HCPCS: 93005; C9803; U0003; U0005

== ENCOUNTER 2021-05-04 09:31 | Outpatient (CLI) | payer MEDICARE, OTHER, SELFPAY ==
--- NOTE | 2021-05-04 09:42 | ECG_ITS ---
Measurements Intervals [place] Rate: 71 P: 47 OK: 155 QRS: 6 QRSD: 81 T: 24 QT: 378 QTc: 412 Interpretive Statements SINUS RHYTHM MINIMAL VOLTAGE CRITERIA FOR LVH, CONSIDER NORMAL VARIANT [MEETS CRITERIA IN ONE OF: R(aVL), S(V1), R(V5), R(V5/V6)+S(V1)] BORDERLINE ECG COMPARED TO ECG 12/21/2019 12:01:45 NO SIGNIFICANT CHANGES Electronically Signed On 05-04-2021 11:22:52 CDT by Nasir Miguel M.D.
== END 2021-05-04 09:32 | disposition home or self-care (01) ==
LOC: ANHSURGERY 09:36
PROVIDERS: PCP Family Medicine; Visit Provider Podiatrist Foot & Ankle Surgery
DX: Z01.812 Encounter for preprocedural laboratory examination (principal); I10 Essential (primary) hypertension
CPT/HCPCS: 93005

== ENCOUNTER 2021-05-07 01:50 | Day surgery (SDC) | payer MEDICARE, OTHER, SELFPAY ==
[2021-04-29 13:00] VITALS: BMI 29.2
--- NOTE | 2021-04-29 13:06 | PC.NURSE ---
Report to the Outpatient Waiting Room, entrance under the green pavilion located off [facility], at time _0600 on date _05/07/21 . OR Time: 729 . - You and your visitor will be asked a series of questions to screen for COVID 19 for your protection. - A mask is required within the hospital. Preoperative COVID Testing Requirements: No COVID Test needed if: (proof is required; if not received patient will have Rapid Test prior to entry) - Patient has received COVID Vaccine at least 14 days prior to procedure date or - Patient has positive COVID test result within last 90 days of surgery date. COVID TESTING 05/04/21 @ 0930 COVID Test needed if above criteria is not met If not COVID vaccinated a COVID test must be conducted within 72 hours of surgery and patient is asked to isolate self from time of testing until procedure. You will go to the [employer] [facility] for your COVID testing. The [employer] [facility] site is located at the corner of [address] [facility]. You will only be called if COVID results are positive and your surgeon may reschedule your elective surgery date. Patients may have clear liquids (water, carbonated beverages, clear teas, apple juice) until 3 hours prior to surgery with a maximum of 20 ounces. - No food from midnight until time of surgery - Infants may have breast milk until 4 hours before surgery, formula 6 hours prior to surgery. - Children will be allowed to drink immediately following surgery. If applicable, please bring a bottle or sippy cup to assist with drinking. Juice, water, soda, and popsicles are readily available. For infants on formula, please bring formula the day of surgery. Pacifiers are allowed. Take the following medications with a SIP of water the morning of surgery: ____AMLODIPINE,CLONAZEPAM,AND SERTRALINE Medications to discontinue per physician ____PT STATES ASPIRIN 7 DAYS PRE OP PER DR MATIAS, ALL VITAMINS 3 DAYS PRE OP Date to take last dose__ASPIRIN 04/29/21,VITAMIN 05/03/21 Please no make-up, nail turkmen, hairspray, perfume, deodorant, or body powder the day of surgery. No jewelry (including any body piercings) or valuables the day of surgery, leave them at home. Please take a shower or bath the night before, or the morning of, surgery with an antibacterial soap. Wear comfortable, loose fitting clothing. Children are encouraged to wear pajamas. - Jewelry must be removed prior to entering the operating room. Rings and piercings that are not removed may be cut off. - The hospital will not accept responsibility for valuables. - Please leave all valuables, including medications, at home the day of surgery. If you are going home after surgery, a licensed day haul or farm charter bus driver must drive you home. - NO public transportation without another adult. - We recommend that an adult stay with you for 24 hours following discharge. - We also recommend that you do not drive, make important decision, drink alcoholic beverages, or take any drugs that were not prescribed by your health care provider for at least 24 hours after your discharge time. For Pediatric surgeries, we recommend two adults accompany the child home (only one inside the building at this time). One visitor will be allowed to accompany the patient into the hospital. Patients visitor will be instructed to remain with patient at all times or leave the building. We will allow the visitor to come back to the postoperative area when patient is ready. Follow any additional instructions given to you from your surgeon. Telephone instructions given to __PATIENT and asked if any additional questions and then verbalized understanding. Patient advised to call surgeon office or pre surgery nurse liaison [phone] if any additional questions.
[2021-05-07] VITALS (8 sets, daily range): BP systolic 143–165; BP diastolic 62–79; PULSE 60–79; RESP 12–16; TEMP 36.6; O2SAT 96–100
--- NOTE | ~2021-05-07 | XR_ITS ---
XR surgery orthopedic DATE: 05/07/2021 08:29 INDICATION: Arthrodesis of right first ray TECHNIQUE: 12 seconds fluoroscopy time 1.0108 cGycm2 Total DAP 3. Spot C-arm images COMPARISON: None FINDINGS: Plate is noted along the dorsal aspect of the distal shaft, neck and head of the first meta tarsal bone and the base and shaft and neck of the proximal phalanx of the first digit, secured by mu ltiple posteroanteriorly directed screws through the first metatarsal and proximal phalanx of the fir st digit. IMPRESSION: Status post arthrodesis at right metatarsophalangeal area Reviewed, dictated and finalized at [facility]. Reviewed, dictated and finalized at [facility].
--- NOTE | 2021-05-07 06:49 | WPDANESEPPF ---
Anes - Initial Pre Proc Eval Procedure: Operation Date: 05/07/21 07:30 Proposed Procedures p Arthrodesis of the First Metatarsal Phalangeal Joint Right Foot - Jordan Rogers JR, MD Date/Time: 05/07/21 06:49 Surgeon: Jordan Rogers JR, MD Pre Op Diagnosis: arthrtitis of the 1st mpj rt foot Patient Data Age: 75 Gender: F Height: 1.6 m Weight: 78 kg Last Vital Signs Temp 36.6 C 05/07/21 06:26 Pulse 65 05/07/21 06:26 Resp 16 05/07/21 06:26 BP 144/62 H 05/07/21 06:26 Pulse Ox 96 05/07/21 06:26 Allergies Allergy/AdvReac Type Severity Reaction Status Date / Time No Known Allergies Allergy Verified 05/07/21 06:05 Home Medications Medication Instructions Recorded Confirmed Type aspirin 81 mg tablet,delayed 81 mg PO DAILY 02/22/19 05/07/21 History release multivitamin 1 tablet PO DAILY 04/09/19 05/07/21 History clonazepam 0.5 mg tablet 0.5 mg PO BID #60 tablet 02/15/21 05/07/21 Rx amlodipine 5 mg tablet 5 mg PO DAILY #90 tablet 03/03/21 05/07/21 Rx clotrimazole 1 % vaginal cream 1 appful VAGINAL QHS 5 Days #45 g 05/03/21 Rx sertraline 50 mg tablet 50 mg PO DAILY #90 tablet 05/04/21 05/07/21 Rx amoxicillin 500 mg PO TID 05/07/21 05/07/21 History metronidazole 500 mg PO BID 05/07/21 05/07/21 History Patient hx anesthesia problems: none Family hx anesthesia problems: none Results Review: All pre-operative results and documents have been reviewed as part of the pre-operative evaluation. [facility] Past Medical History Medical History (Updated 05/07/21 @ 06:49 by Puma Nelson DO) Anxiety History of TIA (transient ischemic attack) HTN (hypertension) Neuropathy RLS (restless legs syndrome) Sleep apnea Surgical History Surgical History History of cholecystectomy History of hysterectomy with bilateral oophorectomy Status post right hip replacement Family History Family History Sibling Patient's sister is in good health Patient's brother is in good health Family history of diabetes mellitus in first degree relative Family history of lung cancer Family history of malignant neoplasm of breast in first degree relative Father Family history of alcoholism Family history of coronary artery disease Mother Family history of pancreatic cancer Family history of diabetes mellitus in first degree relative Other Diabetes mellitus Hypertension Social History Social History Smoking packs per day: 1 Smoking cigarettes per day: 20.0 Years smoked: 10 Smoking pack-years: 10.00 Smoking status: Former smoker Tobacco type: cigarettes Second hand tobacco smoke exposure: No Smoking end date: 02/14/80 Alcohol intake: never Substance use: never Substance use type: does not use Living arrangements: alone Gender identity (if verbalized by the patient): Female Spiritual care concerns: No Anes - Eval Final PreProcedure Day of Procedure 05/07/21 06:49 Patient weight: obese Heart: regular rate and rhythm Lungs: clear to auscultation and normal air movement Airway: Mallampati scale class II Neurological: alert and oriented Last oral intake: >/= 8 hours ASA classification: III Emergent: no Anesthetic plan: proceed Anesthesia type and monitoring: general LMA and standard monitoring Results Review: All pre-operative results and documents have been reviewed as part of the pre-operative evaluation. Informed Consent: The patient's anesthetic plan and its attendant risks and benefits were discussed with the patient/family/POA. Questions were solicited and answers provided to the satisfaction of the patient/family/POA.
--- NOTE | 2021-05-07 06:50 | WPDANESPNB ---
Anes - Peripheral Nerve Block Date/Time: 05/07/21 06:50 I have discussed with the patient/family/POA the placement of a peripheral nerve block for post-operative pain management, including associated risks, benefits, complications, and side effects. Alternative methods of post-operative analgesia were detailed. Questions were solicited and answers provided to the satisfaction of the patient/family/POA. Time-Out: A pre-procedural Time-Out was completed immediately before starting the procedure and confirmed: Patient Identification, Site, Procedure, Patient Position and the Availability of Requisite Equipment. Clinical Indications: Acute post-operative pain management requested by the operative surgeon. Nerve Block Insertion Note Anes-nerve block: posterior fossa sciatic left and adductor canal left Patient position: supine (for adductor canal) and other (right lateral for popliteal) Skin prep: chlorhexidine Needle: 22 gauge, stimulating, insulated echogenic needle. Needle length: 80 mm Technique: nerve stimulation lost at (mA) (for popliteal lost at 0.2) and ultrasound Injectate: bupivacaine 0.5% with epi 5 mcg/ml (20 mL for popliteal, 10 mL for adductor canal (no epi)) Observations: tolerated well Complications: none Procedure start time:: 712 Procedure end time:: 719
[2021-05-07] MEDS: LACTATED RINGERS 1,000 ML 30 ML IV CONT ×2 (07:01→08:40)
--- NOTE | 2021-05-07 07:11 | WPDHPUPDATE1 ---
History and Physical Update Update Date/Time: 05/07/21 07:11 History and Physical has been reviewed, including an updated exam of the patient. There are NO changes in the patient's condition. Risks, benefits, and alternatives have been discussed and questions answered. Patient agrees to proceed with procedure.
[2021-05-07] MEDS: ceFAZolin 2 GM/D5W 50 ML 2 GM/50 ML BAG IVPB (07:25)
[2021-05-07] MEDS: fentaNYL CITRATE INJ (*CRX) 100 MCG/2 ML VIAL 25 MCG IV PUSH ×2 (08:56→09:00)
--- NOTE | 2021-05-07 09:07 | W.PM.PROC2 ---
Procedure Note - Detailed Date of Procedure 05/07/21 Pre-op Diagnosis Arthrtitis of the 1st metatarsal phalangeal joint right foot Post-op Diagnosis Same Procedure Performed Arthrodesis of the first metatarsal phalangeal joint right foot Surgeon Jordan Rogers JR, BECK Anesthesia General and Regional Indications Painful right first metatarsal phalangeal joint right foot Findings Severe cartilage degeneration with osteophytosis and loose bodies present to the first metatarsal phalangeal joint right foot. Description of Procedure PROCEDURE IN DETAIL: Under mild sedation, the patient was brought into the operating room, placed on the operating table in supine position. A pneumatic ankle tourniquet was placed about the patient's ipsilateral ankle. Following general anesthesia and a popliteal fossa block, the foot was then scrubbed, prepped, and draped in the usual aseptic manner. An Esmarch bandage was then used to exsanguinate the patient's foot and the pneumatic ankle tourniquet was then inflated. Surgery began in the following manner: Attention was directed to the dorsal medial aspect of the 1st metatarsophalangeal joint where there was a large bunion deformity noted with loss of motion with a large subcutaneous prominence noted along the medial first metatarsal phalangeal joint. The incision was made starting along the central shaft of the 1st metatarsal and extending just proximal to the interphalangeal joint of the hallux. The incision was continued deep down through the subcutaneous tissues using sharp and blunt dissection. All bleeders were cauterized as necessary. At this point, the dissection was continued down to the level of the periosteum and capsular structures overlying the 1st metatarsophalangeal joint. A full length periosteum and capsular incision was made just medial to the extensor hallucis longus tendon. The periosteum and capsular structures were freed from the base of the proximal phalanx as well as the distal 1st metatarsal. At this point, the 1st metatarsophalangeal joint was identified. There was complete loss of articular cartilage to the head of the 1st metatarsal as well as the base of the proximal phalanx.Moreover, osteophytosis and loose bodies present to the first metatarsal phalangeal joint right foot. There was significant broadening and hypertrophy of the 1st metatarsophalangeal joint. Utilizing a sagittal bone saw, the hypertrophied 1st metatarsal was resected dorsally, medially, and laterally. A power bur was used to make sure that there were no rough edges and also to further d?bride the hypertrophic 1st metatarsal. Next, a rongeur was used to resect the hypertrophic base of the proximal phalanx. At this point, the reamer system for the [employer] cross check plate was used to denude the degenerative cartilage from the head of the 1st metatarsal as well as the base of the proximal phalanx. The cartilage and subchondral bone were fully debrided utilizing the reamer system until healthy bleeding bone was noted. Next, a 2-0 drill bit was used to further fenestrate the head of the 1st metatarsal as well as the base of the proximal phalanx in order to allow fusion across the 1st metatarsophalangeal joint. Next, a 0.045 inch K-wire was driven from the medial aspect of the base of the proximal phalanx into the head of the 1st metatarsal in order to serve as temporary fixation. A large steel plate was used to simulate weight bearing of the foot and make sure that the hallux was in a rectus position both in the sagittal plane as well as the frontal plane. Excellent position of the hallux was noted. Next, a [employer] Cross Check plate was placed atop the 1st metatarsophalangeal joint held in position with [place] wires. Utilizing standard principles and techniques, the 2 proximal drill holes were drilled and two 2.7 mm mm fully-threaded locking screws were driven from dorsal to plantar holding the p
[2021-05-07] MEDS: oxyCODONE HCL (*CRX) 5 MG TAB IR PO (10:20)
== END 2021-05-07 10:30 | disposition home or self-care (01) ==
PROVIDERS: PCP Family Medicine; Visit Provider Podiatrist Foot & Ankle Surgery
PROC: (CPT 28750; principal; 2021-05-07 07:30)
DX: M19.071 Primary osteoarthritis, right ankle and foot (principal); G89.18 Other acute postprocedural pain; I10 Essential (primary) hypertension; G62.9 Polyneuropathy, unspecified; G47.30 Sleep apnea, unspecified; G25.81 Restless legs syndrome; F41.9 Anxiety disorder, unspecified; Z86.73 Personal history of transient ischemic attack (TIA), and cerebral infarction without residual deficits; Z87.891 Personal history of nicotine dependence; E66.9 Obesity, unspecified; Z68.30 Body mass index [BMI] 30.0-30.9, adult
CPT/HCPCS: 28750; 64445; 64447; A9270; C1713; J0690; J1100; J2250; J2405; J2704; J3010; J7120

== ENCOUNTER 2021-08-09 09:36 | Outpatient (CLI) | payer MEDICARE, OTHER, SELFPAY ==
[2021-08-09 10:27] LABS: Alanine Aminotransferase 19 U/L (6-35); Albumin Level 4.4 g/dL (3.5-5.1); Alkaline Phosphatase 134 U/L (38-126); Anion Gap 10 mmol/L (8-16); Aspartate Amino Transferase 21 U/L (14-36); Bilirubin,Total 0.7 mg/dL (0.2-1.3); Blood Urea Nitrogen 20 mg/dL (7-17); Carbon Dioxide 21 mmol/L (22-30); Chloride 110 mmol/L (98-107); Estimated Glomerular Filt Rate > 60; Glucose 105 mg/dL (65-110); Potassium 4.1 mmol/L (3.4-5.0); Sodium 141 mmol/L (137-145)
== END 2021-08-09 09:37 | disposition home or self-care (01) ==
PROVIDERS: PCP Family Medicine; Visit Provider Family Medicine
DX: I10 Essential (primary) hypertension (principal)
CPT/HCPCS: 36415; 80053

== ENCOUNTER 2021-11-04 12:45 | Outpatient (CLI) | payer MEDICARE, OTHER, SELFPAY | END 2021-11-04 12:46 | disposition home or self-care (01) | LOC: ANHAUDIO 12:47 | PROVIDERS: PCP Family Medicine; Visit Provider Otolaryngology | DX: H91.90 Unspecified hearing loss, unspecified ear (principal) | CPT/HCPCS: 99199 ==

== ENCOUNTER 2022-01-19 10:51 | Outpatient (CLI) | payer MEDICARE, OTHER, SELFPAY ==
--- NOTE | ~2022-01-19 | MM_ITS ---
EXAMINATION: MM screening boni BI w nav HISTORY: Screening mammogram, family history of breast cancer in her sister. TECHNIQUE: Craniocaudal and mediolateral oblique 3-D tomosynthesis images were obtained and synthetic 2-D images were generated. CAD analysis was submitted and interpreted. COMPARISON: 01/04/2021, 01/02/2020, 12/10/2018 BREAST PARENCHYMAL COMPOSITION: There are scattered areas of fibroglandular density. FINDINGS: Again noted are multiple stable bilateral breast masses, considered benign given the lack o f interval change. No suspicious mass, calcification, or architectural distortion are identified in e ither breast to suggest malignancy. There has been no suspicious interval change. IMPRESSION: 1. No mammographic evidence of malignancy. 2. Recommend routine screening mammography in one year. BI-RADS Category 2: Benign finding(s). Reviewed, dictated and finalized at location [facility]. TRIC NEEDLE SPECIALIST
== END 2022-01-19 10:52 | disposition home or self-care (01) ==
LOC: ANHIMG 10:54
PROVIDERS: PCP Family Medicine; Visit Provider Family Medicine
DX: Z12.31 Encounter for screening mammogram for malignant neoplasm of breast (principal)
CPT/HCPCS: 77063; 77067

== ENCOUNTER 2022-02-22 17:33 | Emergency (ER) | payer MEDICARE, OTHER, SELFPAY ==
[2022-02-22 17:51] VITALS: BP 133/61; PULSE 96; RESP 18; TEMP 36.7; O2SAT 96
--- NOTE | 2022-02-22 18:38 | ED.SKABFB ---
HPI - Skin/Abscess/Foreign Bdy General Chief complaint: Skin/Abscess/Foreign Body Stated complaint: Rash Time Seen by Provider: 02/22/22 18:38 Source: patient Mode of arrival: ambulatory Limitations: no limitations History of Present Illness HPI narrative: 76-year-old female presented for complaint of rash for 2 days. She endorses left arm redness, warmth, and swelling, which is the site of rash at onset. Also reports scattered itchy hives to back and buttock. Denies known changes to lotion, soap, detergent, however she developed the rash while staying at her sister's house. Of note, this is the second rash outbreak in 6 months and the last episode also occurred while staying at her sister's house. Denies lip/tongue/throat swelling or itching, shortness of breath or wheezing. Denies pain or drainage to lesions. Taking Benadryl. Related Data Home Medications Medication Instructions Recorded Confirmed aspirin 81 mg tablet,delayed 81 mg PO DAILY 02/22/19 02/22/22 release multivitamin 1 tablet PO DAILY 04/09/19 02/22/22 Allergies Allergy/AdvReac Type Severity Reaction Status Date / Time No Known Allergies Allergy Verified 02/22/22 18:30 Review of Systems Review of Systems: CONSTITUTIONAL: Denies body aches, fever, chills, or sweats. EYES: Denies visual changes, redness, or discharge. ENT: Denies rhinorrhea, congestion CARDIOVASCULAR: Denies chest pain, palpitations, or edema. RESPIRATORY: Denies cough or dyspnea. GASTROINTESTINAL: Denies abdominal pain, nausea, vomiting, or diarrhea. SKIN: per HPI MUSCULOSKELETAL: Denies back pain, joint pain, or myalgia. NEUROLOGIC: Denies headache, numbness, tingling, or weakness. [facility] Past Medical History Medical History Anxiety Depression History of TIA (transient ischemic attack) HTN (hypertension) Neuropathy Osteoarthritis RLS (restless legs syndrome) Sleep apnea Surgical History Surgical History History of cholecystectomy History of hysterectomy with bilateral oophorectomy Status post right hip replacement Family History Family History Sibling Patient's sister is in good health Patient's brother is in good health Family history of diabetes mellitus in first degree relative Family history of lung cancer Family history of malignant neoplasm of breast in first degree relative Father Family history of alcoholism Family history of coronary artery disease Mother Family history of pancreatic cancer Family history of diabetes mellitus in first degree relative Other Diabetes mellitus Hypertension Social History Social History Smoking packs per day: 1 Smoking cigarettes per day: 20.0 Years smoked: 10 Smoking pack-years: 10.00 Smoking status: Former smoker Tobacco type: cigarettes Second hand tobacco smoke exposure: No Smoking end date: 02/14/80 Alcohol intake: never Substance use: never Substance use type: does not use Gender identity (if verbalized by the patient): Female Spiritual care concerns: No Comments At time of signature, I have reviewed and agree with nursing past medical, surgical, social and family history unless otherwise noted. Please see nursing chart for further information. There is no relevant family history pertinent to the presenting complaint Exam Narrative: GENERAL: Well-appearing HEAD: Normocephalic, atraumatic. EYES: conjunctivae clear, and EOMI. ENT: Mucous membranes moist. Oropharynx without edema, erythema or lesions. NECK: Supple. No lymphadenopathy CHEST: Clear to auscultation. HEART: Regular rate and rhythm. SKIN: Warm, dry. Left forearm erythematous and warm c/w cellulitis, not circumferential, pulses palpable. Cap refill <3 seconds. Scattered urticaria t
== END 2022-02-22 18:56 | disposition home or self-care (01) ==
PROVIDERS: Emergency Provider Nurse Practitioner Family; PCP Family Medicine
DX: L03.114 Cellulitis of left upper limb (principal); L30.9 Dermatitis, unspecified; Z87.891 Personal history of nicotine dependence; I10 Essential (primary) hypertension; G62.9 Polyneuropathy, unspecified; M19.90 Unspecified osteoarthritis, unspecified site; G25.81 Restless legs syndrome; Z86.73 Personal history of transient ischemic attack (TIA), and cerebral infarction without residual deficits; Z79.82 Long term (current) use of aspirin; F41.9 Anxiety disorder, unspecified; F32.A Depression, unspecified
CPT/HCPCS: 99213; G0463

== ENCOUNTER 2022-03-09 13:28 | Outpatient (CLI) | payer MEDICARE, OTHER, SELFPAY ==
--- NOTE | ~2022-03-09 | US_ITS ---
EXAMINATION: US carotid duplex BI DATE: 03/09/2022 14:07 INDICATION: Syncope. TECHNIQUE: Grayscale, color Doppler, and pulsed Doppler images of the cervical carotid arteries were obtained. The degree of vessel stenosis is placed in one of the following categories: normal, <50%, 5 0-69%, >=70% but less than near-occlusion, near-occlusion, or total occlusion. Note that percent sten osis relative to normal distal artery lumen diameter is indirectly measured from velocity measurement s as described by Rober, et al. Radiology 2003; 229:340-346. COMPARISON: None. FINDINGS: RIGHT: The right common carotid artery (CCA) peak systolic velocity (PSV) is 97 cm/s. The right internal car otid artery (ICA) PSV is 122 cm/s. The right ICA end-diastolic velocity (EDV) is 27 cm/s. The right I CA/CCA PSV ratio is 1.3. Grayscale and color Doppler images yield an estimate of <50% diameter reduct ion from plaque in the ICA. There is antegrade flow in the right vertebral artery. LEFT: The left CCA PSV is 123 cm/s. The left ICA PSV is 145 cm/s. The left ICA EDV is 1.2 cm/s. The left IC A/CCA PSV ratio is 1.2. Grayscale and color Doppler images yield an estimate of <50% diameter reducti on from plaque in the ICA. There is antegrade flow in the left vertebral artery. IMPRESSION: 1. <50% stenosis in the right internal carotid artery. 2. <50% stenosis in the left internal carotid artery. Reviewed, dictated and finalized at location A. MAKING MACHINE OPERATOR
== END 2022-03-09 13:29 | disposition home or self-care (01) ==
LOC: ANHIMG 13:29
PROVIDERS: PCP Family Medicine; Visit Provider Family Medicine
DX: R55 Syncope and collapse (principal); I65.23 Occlusion and stenosis of bilateral carotid arteries
CPT/HCPCS: 93880

== ENCOUNTER 2022-03-24 07:14 | Outpatient (CLI) | payer MEDICARE, OTHER, SELFPAY ==
[2022-03-24 07:57] LABS: Hematocrit 41.9 % (37.0-47.0); Hemoglobin 14.4 g/dL (12.0-15.0); Mean Corpuscular HGB Conc 34.4 g/dl (32-36); Mean Corpuscular Hemoglobin 30.3 pg (26-34); Mean Corpuscular Volume 88.2 fl (80-100); Mean Platelet Volume 9.2 fl (7.4-10.4); Platelet Count Result 286 k/mm3 (150-375); Red Blood Count 4.75 M/mm3 (4.2-5.4); Red Cell Distribution Width 12.4 % (11.5-14.5); White Blood Count 10.3 K/mm3 (4.5-10.0)
[2022-03-24 08:04] LABS: Appearance Urine Cloudy (Clear); Bilirubin Urine Negative (Negative); Blood Urine 1+ (Negative); Color Urine Yellow (Yellow); Glucose Urine UA Negative (Negative); Ketones Urine Negative (Negative); Leukocyte Esterase Ur 3+ LEU/UL (NEGATIVE); Nitrate Urine Positive (Negative); Protein Urine 2+ mg/dL (Negative); Specific Grav Ur >= 1.030 (1.001-1.035); Urobilinogen Urine 0.2 mg/dL (<2.0)
[2022-03-24 08:15] LABS: Alanine Aminotransferase 24 U/L (6-35); Albumin Level 4.5 g/dL (3.5-5.1); Alkaline Phosphatase 113 U/L (38-126); Anion Gap 7 mmol/L (8-16); Aspartate Amino Transferase 23 U/L (14-36); Bilirubin,Total 0.6 mg/dL (0.2-1.3); Blood Urea Nitrogen 14 mg/dL (7-17); Calcium 8.8 mg/dL (8.4-10.2); Carbon Dioxide 25 mmol/L (22-30); Chloride 106 mmol/L (98-107); Cholesterol 226 mg/dL (0-200); Estimated Glomerular Filt Rate > 60; Glucose 114 mg/dL (65-110); HDL Direct 42 mg/dL; Potassium 3.9 mmol/L (3.4-5.0); Sodium 138 mmol/L (137-145); Triglycerides 226 mg/dL (<150)
[2022-03-24 08:26] LABS: LDL Cholesterol Direct 119 mg/dL
[2022-03-24 10:39] LABS: Mucus Urine Rare /lpf; WBC Clumps Urine Present /HPF; WBC Urine >75 /hpf (0-3)
[2022-03-24 10:50] LABS: Bacteria Urine 3+ /hpf
[2022-03-24 10:56] LABS: Add Urine Microscopic? YES
[2022-03-24 12:11] LABS: Hemoglobin A1C 5.3 % (<5.7)
== END 2022-03-24 07:15 | disposition home or self-care (01) ==
LOC: ANHLAB 07:16
PROVIDERS: PCP Family Medicine; Visit Provider Family Medicine
DX: Z00.00 Encounter for general adult medical examination without abnormal findings (principal); E78.1 Pure hyperglyceridemia; I10 Essential (primary) hypertension; R53.83 Other fatigue; R73.01 Impaired fasting glucose
CPT/HCPCS: 36415; 80053; 80061; 81001; 83036; 84443; 85027

== ENCOUNTER 2022-05-16 10:58 | Outpatient (CLI) | payer MEDICARE, OTHER, SELFPAY | END 2022-05-16 10:59 | disposition home or self-care (01) | LOC: ANHAUDIO 10:59 | PROVIDERS: PCP Family Medicine; Visit Provider Otolaryngology | DX: H90.3 Sensorineural hearing loss, bilateral (principal) | CPT/HCPCS: 92557; 92567 ==

== ENCOUNTER 2022-06-20 12:57 | Emergency (ER) | payer MEDICARE, OTHER, SELFPAY ==
[2022-06-20 13:06] VITALS: BP 133/57; PULSE 76; RESP 18; TEMP 36.6; O2SAT 96
--- NOTE | 2022-06-20 13:07 | ED.EAR ---
HPI - Ear Problem General Chief complaint: Ear Stated complaint: bilateral ear pain Time Seen by Provider: 06/20/22 13:13 Source: patient and RN notes reviewed Mode of arrival: ambulatory Limitations: no limitations History of Present Illness HPI Narrative: 76-year-old female presents with concern for bilateral ear pain. She reports her glands feel swelling behind her ears. She reports she has had a feeling of ?something moving inside her left ear? but she has had it looked in to by audiology and ENT with no findings. She reports she suffers from allergies, she takes daily allergy medicine. She denies any sinus pain, pressure. MD Complaint: ear pain Related Data Home Medications Medication Instructions Recorded Confirmed aspirin 81 mg tablet,delayed 81 mg PO DAILY 02/22/19 06/20/22 release multivitamin 1 tablet PO DAILY 04/09/19 06/20/22 Allergies Allergy/AdvReac Type Severity Reaction Status Date / Time No Known Allergies Allergy Verified 06/20/22 13:11 Review of Systems Review of Systems: CONSTITUTIONAL: Denies malaise, chills, sweats, or fever. EYES: Denies visual changes, redness, or discharge. ENT: Denies rhinorrhea, congestion, sinus pain, and sore throat. Reports bilateral ear pain CARDIOVASCULAR: Denies chest pain, palpitations, or edema. RESPIRATORY: Denies cough. Denies dyspnea. GASTROINTESTINAL: Denies abdominal pain, nausea, vomiting, diarrhea SKIN: Denies rash or itching. MUSCULOSKELETAL: Denies myalgia. NEUROLOGIC: Denies headache. All systems reviewed & are unremarkable except as noted in HPI and below PMFSH Past Medical History Medical History Anxiety Depression History of TIA (transient ischemic attack) HTN (hypertension) Neuropathy Osteoarthritis RLS (restless legs syndrome) Sleep apnea Surgical History Surgical History History of cholecystectomy History of hysterectomy with bilateral oophorectomy Status post right hip replacement Family History Family History Sibling Patient's sister is in good health Patient's brother is in good health Family history of diabetes mellitus in first degree relative Family history of lung cancer Family history of malignant neoplasm of breast in first degree relative Father Family history of alcoholism Family history of coronary artery disease Mother Family history of pancreatic cancer Family history of diabetes mellitus in first degree relative Other Diabetes mellitus Hypertension Social History Social History Smoking packs per day: 1 Smoking cigarettes per day: 20.0 Years smoked: 10 Smoking pack-years: 10.00 Smoking status: Former smoker Tobacco type: cigarettes Second hand tobacco smoke exposure: No Smoking end date: 02/14/80 Alcohol intake: never Substance use: never Substance use type: does not use Living arrangements: alone Occupation/Education: retired Gender identity (if verbalized by the patient): Female Spiritual care concerns: No Comments At time of signature, agree with nursing past medical, surgical, social and family history. There is no relevant family history pertinent to the presenting complaint Exam Narrative: GENERAL: Well-appearing, well-nourished, and in no acute distress. HEAD: Normocephalic EYES: PERRLA, conjunctivae clear ENT: Nares clear, turbinates edematous, clear discharge. Mucous membranes moist. TM pearly arzate with dull light reflex bilaterally; no tragal tenderness. Oropharynx not erythematous without lesions. Tonsils not enlarged and without exudate, no drooling, no hoarseness, no trismus, uvula midline. NECK: Supple. No lymphadenopathy CHEST: Clear to auscultation, breath sounds equal. No wheezing, rhonchi, rales, or stridor. No respiratory dist
== END 2022-06-20 13:23 | disposition home or self-care (01) ==
PROVIDERS: Emergency Provider Nurse Practitioner; PCP Family Medicine
DX: H73.893 Other specified disorders of tympanic membrane, bilateral (principal); Z87.891 Personal history of nicotine dependence; I10 Essential (primary) hypertension; M19.90 Unspecified osteoarthritis, unspecified site; G25.81 Restless legs syndrome; Z86.73 Personal history of transient ischemic attack (TIA), and cerebral infarction without residual deficits; Z79.82 Long term (current) use of aspirin
CPT/HCPCS: 99211; G0463

== ENCOUNTER 2022-08-10 09:58 | Outpatient (CLI) | payer MEDICARE, OTHER, SELFPAY ==
--- NOTE | ~2022-08-10 | US_ITS ---
Limited Abdominal Sonogram: Real-time sonographic imaging of the right upper quadrant was performed. Clinical History: Right upper quadrant pain Findings: The liver appears echogenic, with no evidence of mass lesion or bile duct dilatation. Main portal vein demonstrates normal direction of flow. The gallbladder is absent, compatible prior job cystectomy. The common bile duct measures 8 mm. The visualized pancreas, aorta, and IVC are unremark able. Impression: Diffuse fatty infiltration of liver. Status post cholecystectomy. Reviewed, dictated and finalized at location . Impression: Diffuse fatty infiltration of liver. Status post cholecystectomy.
== END 2022-08-10 09:59 | disposition home or self-care (01) ==
PROVIDERS: PCP Family Medicine; Visit Provider Family Medicine
DX: R10.11 Right upper quadrant pain (principal); K76.0 Fatty (change of) liver, not elsewhere classified; Z90.49 Acquired absence of other specified parts of digestive tract
CPT/HCPCS: 76705

== ENCOUNTER 2022-09-26 09:16 | Outpatient (CLI) | payer MEDICARE, OTHER, SELFPAY ==
[2022-09-26 10:10] LABS: Alanine Aminotransferase 25 U/L (6-35); Albumin Level 4.4 g/dL (3.5-5.1); Alkaline Phosphatase 137 U/L (38-126); Anion Gap 8 mmol/L (8-16); Aspartate Amino Transferase 24 U/L (14-36); Bilirubin,Total 0.5 mg/dL (0.2-1.3); Blood Urea Nitrogen 19 mg/dL (7-17); Carbon Dioxide 23 mmol/L (22-30); Chloride 109 mmol/L (98-107); Estimated Glomerular Filt Rate > 60; Glucose 107 mg/dL (65-110); Sodium 140 mmol/L (137-145)
[2022-09-26 10:52] LABS: Hemoglobin A1C 5.4 % (<5.7)
== END 2022-09-26 09:17 | disposition home or self-care (01) ==
PROVIDERS: PCP Family Medicine; Visit Provider Family Medicine
DX: R73.01 Impaired fasting glucose (principal); I10 Essential (primary) hypertension
CPT/HCPCS: 36415; 80053; 83036

== ENCOUNTER 2022-12-23 14:37 | Emergency (ER) | payer MEDICARE, OTHER, SELFPAY ==
--- NOTE | ~2022-12-23 | XR_ITS ---
EXAMINATION: XR chest 2V DATE: 12/23/2022 15:16 INDICATION: Cough TECHNIQUE: PA and lateral views of the chest are obtained. COMPARISON: 12/21/2019 FINDINGS: The lungs are free of acute opacities. No pleural effusion or pneumothorax. The cardiomedia stinal silhouette is normal. There is moderate thoracic spondylosis. IMPRESSION: 1. No acute cardiopulmonary abnormality. Reviewed, dictated and finalized at location B. NOMY SUPERVISOR
[2022-12-23 14:47] VITALS: BP 130/63; PULSE 73; RESP 18; TEMP 36.6; O2SAT 97
[2022-12-23 14:57] VITALS: BP 130/63; PULSE 73; RESP 18; TEMP 36.6; O2SAT 97
--- NOTE | 2022-12-23 15:05 | ED.URI ---
HPI - URI/Sore Throat General Chief Complaint: Upper Respiratory Infection Stated Complaint: cough Time Seen by Provider: 12/23/22 14:57 Source: patient and RN notes reviewed Mode of arrival: ambulatory Limitations: no limitations History of Present Illness HPI Narrative: Patient presents today with a 3 day history of cough that is occasionally productive, wheezing, nasal congestion. Patient states her wheezing is most present when she is lying flat. She also reports fever up to 100 that was present for the 1st 2 days of her illness before resolving. She has been taking Mucinex and NyQuil with mild relief. Patient reports, ?seasonal asthma?, but does not have an inhaler that she uses for this. Denies known sick contacts. States she is concerned for pneumonia. Related Data Home Medications Medication Instructions Recorded Confirmed multivitamin 1 tablet PO DAILY 04/09/19 12/23/22 Allergies Allergy/AdvReac Type Severity Reaction Status Date / Time No Known Allergies Allergy Verified 12/23/22 14:53 Review of Systems Review of Systems: CONSTITUTIONAL: Denies body aches, chills, or sweats.+ fever-resolved EYES: Denies visual changes, redness, or discharge. ENT: Denies rhinorrhea, sore throat, or otalgia.+ congestion CARDIOVASCULAR: Denies chest pain, palpitations, or edema. RESPIRATORY: Denies dyspnea.+ cough, wheezing GASTROINTESTINAL: Denies abdominal pain, nausea, vomiting, or diarrhea. GENITOURINARY: Denies dysuria or hematuria. SKIN: Denies rash, itching, or wounds. MUSCULOSKELETAL: Denies back pain, joint pain, or myalgia. NEUROLOGIC: Denies headache, numbness, tingling, or weakness. PSYCH: Denies depression or anxiety. [facility] Past Medical History Medical History Anxiety Depression History of TIA (transient ischemic attack) HTN (hypertension) Neuropathy Osteoarthritis RLS (restless legs syndrome) Sleep apnea Surgical History Surgical History History of cholecystectomy History of hysterectomy with bilateral oophorectomy Status post right hip replacement Family History Family History Sibling Patient's sister is in good health Patient's brother is in good health Family history of diabetes mellitus in first degree relative Family history of lung cancer Family history of malignant neoplasm of breast in first degree relative Father Family history of alcoholism Family history of coronary artery disease Mother Family history of pancreatic cancer Family history of diabetes mellitus in first degree relative Other Diabetes mellitus Hypertension Social History Social History Smoking packs per day: 1 Smoking cigarettes per day: 20.0 Years smoked: 10 Smoking pack-years: 10.00 Smoking status: Former smoker Tobacco type: cigarettes Second hand tobacco smoke exposure: No Smoking end date: 02/14/80 Alcohol intake: never Substance use: never Substance use type: does not use Lack of Transportation: No Lack of Food: Never True Current Housing: I Have Housing Concerned About Future Housing: No Difficulty Paying Gas/Electric Bills: No Difficulty Paying for Meds: No Currently Unemployed: No Education: High School Diploma/GED Difficulty w/ Childcare or Family Care: No Living arrangements: alone Occupation/Education: retired Gender identity (if verbalized by the patient): Female Spiritual care concerns: No Comments At time of signature, I have reviewed and agree with nursing past medical, surgical, social and family history unless otherwise noted. Please see nursing chart for further information. There is no relevant family history pertinent to the presenting complaint Exam Narrative: GENERAL: Well
== END 2022-12-23 15:57 | disposition home or self-care (01) ==
PROVIDERS: Emergency Provider Nurse Practitioner; PCP Family Medicine
DX: B34.9 Viral infection, unspecified (principal); Z87.891 Personal history of nicotine dependence; I10 Essential (primary) hypertension; G62.9 Polyneuropathy, unspecified; M19.90 Unspecified osteoarthritis, unspecified site; G25.81 Restless legs syndrome; Z96.641 Presence of right artificial hip joint; Z86.73 Personal history of transient ischemic attack (TIA), and cerebral infarction without residual deficits; F41.9 Anxiety disorder, unspecified; F32.A Depression, unspecified
CPT/HCPCS: 71046; 99213; G0463

== ENCOUNTER 2023-01-03 10:13 | Outpatient (CLI) | payer MEDICARE, OTHER, SELFPAY ==
[2023-01-03 10:50] LABS: Appearance Urine Clear (Clear); Bilirubin Urine Negative (Negative); Blood Urine Negative (Negative); Color Urine Yellow (Yellow); Glucose Urine UA Negative (Negative); Ketones Urine Negative (Negative); Leukocyte Esterase Ur Negative LEU/UL (NEGATIVE); Nitrate Urine Negative (Negative); Protein Urine Negative (Negative); Specific Grav Ur 1.019 (1.001-1.035); Urobilinogen Urine 0.2 mg/dL (<2.0)
[2023-01-03 10:52] LABS: Add Urine Microscopic? NO
== END 2023-01-03 10:14 | disposition home or self-care (01) ==
PROVIDERS: PCP Family Medicine; Visit Provider Physician Assistant
DX: R68.81 Early satiety (principal); R30.0 Dysuria
CPT/HCPCS: 81003; 87086; 87088

== ENCOUNTER 2023-01-19 11:22 | Emergency (ER) | payer MEDICARE, OTHER, SELFPAY ==
--- NOTE | ~2023-01-19 | CT_ITS ---
EXAMINATION: CT abdomen pelvis w con DATE: 01/19/2023 17:31 INDICATION: Epigastric abdominal pain. Nausea. TECHNIQUE: Computed tomography (CT) of the abdomen and pelvis was performed with 100 mL Omnipaque 350 intravenous contrast. Automated exposure control and iterative reconstruction technique were employe d. The dose-length product was 780.97 mGy-cm. COMPARISON: CT abdomen and pelvis 05/06/2014 FINDINGS: The visualized portions of the lung bases are clear without pneumonia or pleural effusion. The heart size is normal. No pericardial effusion. There is a benign calcification in the liver. Ther e are changes of cholecystectomy. The spleen, pancreas, and adrenal glands are normal. There are cyst s in the kidneys measuring up to 12 mm on the left. There is diverticulosis of the colon without evid ence of diverticulitis. There are no dilated loops of bowel. There is wall thickening of multiple loo ps of small bowel. The appendix is normal. There is calcified atherosclerosis of the aorta and many o f the other arteries. There is moderate lumbar spondylosis and mild thoracic spondylosis. There is a hemangioma in T8 vertebral body. There is a total right hip arthroplasty. IMPRESSION: 1. Wall thickening of multiple loops of small bowel, consistent with enteritis. Reviewed, dictated and finalized at location E. ICAL APPEALS SPECIALIST
--- NOTE | 2023-01-19 11:24 | ECG_ITS ---
Measurements Intervals [place] Rate: 84 P: 58 [place]: 145 QRS: 25 QRSD: 81 T: 57 QT: 370 QTc: 439 Interpretive Statements SINUS RHYTHM COMPARED TO ECG 05/04/2021 09:46:53 NO SIGNIFICANT CHANGES Electronically Signed On 01-19-2023 19:14:25 PHP WEBSITE DEVELOPER by Xochilt Howell M.D.
[2023-01-19 11:25] VITALS: BP 122/59; PULSE 87; RESP 20; TEMP 36.8; O2SAT 95
[2023-01-19 15:12] VITALS: BP 173/67; PULSE 88; RESP 20; O2SAT 94
[2023-01-19 16:21] VITALS: BP 166/65; PULSE 94; RESP 12; O2SAT 99
--- NOTE | 2023-01-19 16:27 | ED.ABDPAIN ---
HPI - Abdominal Pain General Chief Complaint: Abdominal Pain Stated Complaint: Pain in stomach/nausea Time Seen by Provider: 01/19/23 16:14 History of Present Illness HPI narrative: 77-year-old female presents to the emergency department for evaluation of intermittent abdominal pain. Patient reports she has felt poorly over the course of the last month. Patient states she has had intermittent abdominal pain over the last 2 weeks. Patient states he has had decreased p.o. intake. Patient states that she did have increased nausea yesterday. Patient denies any emesis. Patient states she was having some issues with constipation but did have a bowel movement this morning. Patient describes it as being diarrhea Related Data Home Medications Medication Instructions Recorded Confirmed multivitamin 1 tablet PO DAILY 04/09/19 12/23/22 albuterol sulfate 90 mcg/actuation inhalation 01/19/23 aerosol inhaler amlodipine 5 mg tablet mg 01/19/23 cholestyramine (with sugar) 4 gram ea 01/19/23 01/19/23 powder for susp in a packet sertraline 100 mg tablet mg 01/19/23 Allergies Allergy/AdvReac Type Severity Reaction Status Date / Time No Known Allergies Allergy Verified 12/23/22 14:53 Review of Systems Review of Systems: All systems reviewed & are unremarkable except as noted in HPI and below PMFSH Past Medical History Medical History Anxiety Depression History of TIA (transient ischemic attack) HTN (hypertension) Neuropathy Osteoarthritis RLS (restless legs syndrome) Sleep apnea Surgical History Surgical History History of cholecystectomy History of hysterectomy with bilateral oophorectomy Status post right hip replacement Family History Family History Sibling Patient's sister is in good health Patient's brother is in good health Family history of diabetes mellitus in first degree relative Family history of lung cancer Family history of malignant neoplasm of breast in first degree relative Father Family history of alcoholism Family history of coronary artery disease Mother Family history of pancreatic cancer Family history of diabetes mellitus in first degree relative Other Diabetes mellitus Hypertension Social History Social History Smoking packs per day: 1 Smoking cigarettes per day: 20.0 Years smoked: 10 Smoking pack-years: 10.00 Smoking status: Former smoker Tobacco type: cigarettes Second hand tobacco smoke exposure: No Smoking end date: 02/14/80 Alcohol intake: never Substance use: never Substance use type: does not use Lack of Transportation: No Lack of Food: Never True Current Housing: I Have Housing Concerned About Future Housing: No Difficulty Paying Gas/Electric Bills: No Difficulty Paying for Meds: No Currently Unemployed: No Education: High School Diploma/GED Difficulty w/ Childcare or Family Care: No Living arrangements: alone Occupation/Education: retired Gender identity (if verbalized by the patient): Female Spiritual care concerns: No Exam Narrative: APPEARANCE: Well appearing, no pain, no distress, well-nourished. HEAD: normocephalic, atraumatic. EYES: PERRLA/EOMI, conjunctivae clear. NOSE: Normal no drainage EARS:TMS clear with good light reflex. THROAT: Pharynx clear, no exudate. NECK: Supple. No adenopathy, no masses. RESPIRATORY: Airway patent, respirations nonlabored. Clear to auscultation bilaterally, no rales, rhonchi, wheezing. CARDIOVASCULAR: Regular rate and rhythm without murmurs rubs or gallops. ABDOMINAL: Soft, epigastric and right upper quadrant tenderness to palpation MUSCULOSKELETAL: Moves all extremities. Strength/ROM intact, No edema, No calf tenderness. N
[2023-01-19 17:01] LABS: Appearance Urine Cloudy (Clear); Bacteria Urine Rare /hpf; Bilirubin Urine Negative (Negative); Blood Urine Negative (Negative); Calcium Oxalate Crystals Urine Present /hpf; Color Urine Dark Yellow (Yellow); Glucose Urine UA Negative (Negative); Ketones Urine Trace mg/dL (Negative); Leukocyte Esterase Ur Trace LEU/UL (Negative); Need Manual Microscopic Reviewed; Nitrate Urine Negative (Negative); Non Pathogenic Casts 0-2; Protein Urine Negative (Negative); RBC Urine 0-2 /hpf (0-2); Specific Grav Ur 1.028 (1.001-1.035); Squamous Epithelial Cell Urine Few /hpf (Few); Urobilinogen Urine 0.2 mg/dL (<2.0); WBC Urine 0-5 /hpf; pH Urine 5.5 (5.0-9.0)
[2023-01-19 17:02] LABS: Basophils Percent Auto 0.5 % (0.2-1.2); Eosinophils Absolute Auto 0.2 K/mm3 (0-0.3); Hematocrit 43.7 % (37.0-47.0); Hemoglobin 14.8 g/dL (12.0-15.0); Immature Granulocyte Absolute 0.06 K/mm3 (0.00-0.031); Immature Granulocyte Percent A 0.7 % (0-0.5); Lymphocytes Percent Auto 30.8 % (18.3-44.2); Mean Corpuscular HGB Conc 33.9 g/dl (32-36); Mean Corpuscular Hemoglobin 29.4 pg (26-34); Mean Corpuscular Volume 86.7 fl (80-100); Mean Platelet Volume 9.6 fl (7.4-10.4); Monocytes Absolute Auto 0.9 K/mm3 (0.1-0.6); Monocytes Percent Auto 10.5 % (2.6-8.5); Neutrophils Absolute Auto 4.5 K/mm3 (1.3-6.7); Neutrophils Percent Auto 55.5 % (45.5-73.1); Platelet Count Result 271 k/mm3 (150-375); Red Blood Count 5.04 M/mm3 (4.2-5.4); Red Cell Distribution Width 12.7 % (11.5-14.5); White Blood Count 8.1 K/mm3 (4.5-10.0)
[2023-01-19 17:02] LABS: Add Urine Microscopic? YES
[2023-01-19 17:11] LABS: Prothrombin Time 13.5 Seconds (11.1-14.7)
[2023-01-19 17:12] LABS: Partial Thromboplastin Time 26.7 SECONDS (22.3-36.8)
[2023-01-19 17:14] LABS: Lactic Acid Reflex 1.3 mmol/L (0.7-2.0)
[2023-01-19 17:15] LABS: Alanine Aminotransferase 26 U/L (6-35); Albumin Level 4.6 g/dL (3.5-5.1); Alkaline Phosphatase 141 U/L (38-126); Anion Gap 9 mmol/L (8-16); Aspartate Amino Transferase 27 U/L (14-36); Bilirubin,Total 0.9 mg/dL (0.2-1.3); Blood Urea Nitrogen 24 mg/dL (7-17); Calcium 9.4 mg/dL (8.4-10.2); Carbon Dioxide 22 mmol/L (22-30); Chloride 108 mmol/L (98-107); Estimated CRCL calculation 75 ml/min; Estimated Glomerular Filt Rate > 60; Glucose 125 mg/dL (65-110); Lipase 71 U/L (23-300); Potassium 3.5 mmol/L (3.4-5.0); Sodium 139 mmol/L (137-145)
[2023-01-19 17:23] LABS: Influenza A QL RT-PCR Negative (Negative); Influenza B QL RT-PCR Negative (Negative); RSV RNA, RT-PCR Negative (Negative); SARS-CoV-2 RNA PCR Negative (Negative)
[2023-01-19] MEDS: SODIUM CHLORIDE 0.9% IV 1,000 ML 999 ML IV CONT (18:01)
[2023-01-19 18:44] VITALS: BP 150/71; PULSE 78; RESP 21; O2SAT 99
== END 2023-01-19 18:46 | disposition home or self-care (01) ==
PROVIDERS: Emergency Provider Emergency Medicine; PCP Family Medicine
DX: R11.2 Nausea with vomiting, unspecified (principal); R19.7 Diarrhea, unspecified; Z20.822 Contact with and (suspected) exposure to COVID-19; I10 Essential (primary) hypertension; G62.9 Polyneuropathy, unspecified; G25.81 Restless legs syndrome; G47.30 Sleep apnea, unspecified; M19.90 Unspecified osteoarthritis, unspecified site; F41.9 Anxiety disorder, unspecified; F32.A Depression, unspecified; Z96.641 Presence of right artificial hip joint; Z86.73 Personal history of transient ischemic attack (TIA), and cerebral infarction without residual deficits; Z90.49 Acquired absence of other specified parts of digestive tract; Z90.710 Acquired absence of both cervix and uterus; Z90.722 Acquired absence of ovaries, bilateral; Z87.891 Personal history of nicotine dependence; R93.3 Abnormal findings on diagnostic imaging of other parts of digestive tract
CPT/HCPCS: 36415; 74177; 80053; 81001; 83605; 83690; 85025; 85610; 85730; 87637; 93005; 96360; 99284; J7030; Q9967

== ENCOUNTER 2023-04-04 10:08 | Outpatient (CLI) | payer MEDICARE, OTHER, SELFPAY ==
[2023-04-04 10:36] LABS: Hematocrit 41.7 % (37.0-47.0); Hemoglobin 14.6 g/dL (12.0-15.0); Mean Corpuscular Hemoglobin 29.8 pg (26-34); Mean Corpuscular Volume 85.1 fl (80-100); Mean Platelet Volume 9.1 fl (7.4-10.4); Platelet Count Result 286 k/mm3 (150-375); Red Cell Distribution Width 12.2 % (11.5-14.5); White Blood Count 9.1 K/mm3 (4.5-10.0)
[2023-04-04 10:49] LABS: Alanine Aminotransferase 22 U/L (6-35); Albumin Level 4.4 g/dL (3.5-5.1); Alkaline Phosphatase 121 U/L (38-126); Anion Gap 7 mmol/L (8-16); Aspartate Amino Transferase 24 U/L (14-36); Bilirubin,Total 0.9 mg/dL (0.2-1.3); Blood Urea Nitrogen 19 mg/dL (7-17); Calcium 9.5 mg/dL (8.4-10.2); Carbon Dioxide 23 mmol/L (22-30); Chloride 109 mmol/L (98-107); Cholesterol 210 mg/dL (0-200); Estimated Glomerular Filt Rate > 60; Glucose 104 mg/dL (65-110); HDL Direct 37 mg/dL; Potassium 3.9 mmol/L (3.4-5.0); Sodium 139 mmol/L (137-145); Triglycerides 279 mg/dL (<150)
[2023-04-04 10:50] LABS: Appearance Urine Clear (Clear); Bacteria Urine None Seen /hpf; Bilirubin Urine Negative (Negative); Blood Urine Negative (Negative); Color Urine Yellow (Yellow); Glucose Urine UA Negative (Negative); Ketones Urine Negative (Negative); Leukocyte Esterase Ur Trace LEU/UL (NEGATIVE); Nitrate Urine Negative (Negative); Non Pathogenic Casts 0-2; Protein Urine Negative (Negative); RBC Urine 0-2 /hpf (0-2); Specific Grav Ur 1.021 (1.001-1.035); Squamous Epithelial Cell Urine Few /hpf (Few); Urobilinogen Urine 0.2 mg/dL (<2.0); WBC Urine 0-5 /hpf (0-3)
[2023-04-04 11:00] LABS: LDL Cholesterol Direct 124 mg/dL
[2023-04-04 11:11] LABS: Add Urine Microscopic? YES
[2023-04-04 14:05] LABS: Hemoglobin A1C 5.4 % (<5.7)
== END 2023-04-04 10:09 | disposition home or self-care (01) ==
PROVIDERS: PCP Family Medicine; Visit Provider Family Medicine
DX: R73.01 Impaired fasting glucose (principal); E78.1 Pure hyperglyceridemia; I10 Essential (primary) hypertension
CPT/HCPCS: 36415; 80053; 80061; 81001; 83036; 84443; 85027

== ENCOUNTER 2023-04-06 10:37 | Outpatient (CLI) | payer MEDICARE, OTHER, SELFPAY ==
--- NOTE | ~2023-04-06 | XR_ITS ---
EXAMINATION: XR chest 2V DATE: 04/06/2023 10:55 INDICATION: Cough, unspecified TECHNIQUE: PA and lateral views of the chest are obtained. COMPARISON: 12/23/2022 FINDINGS: The lungs are free of acute opacities. No pleural effusion or pneumothorax. The cardiomedia stinal silhouette is normal. There is mild thoracic spondylosis. IMPRESSION: 1. No acute cardiopulmonary abnormality. Reviewed, dictated and finalized at location L. LIANCE TECHNICIAN
== END 2023-04-06 10:38 | disposition home or self-care (01) ==
LOC: ANHIMG 10:39
PROVIDERS: PCP Family Medicine; Visit Provider Family Medicine
DX: R05.9 Cough, unspecified (principal)
CPT/HCPCS: 71046

== ENCOUNTER 2023-04-11 13:36 | Outpatient (CLI) | payer MEDICARE, OTHER, SELFPAY ==
--- NOTE | ~2023-04-11 | MM_ITS ---
EXAMINATION: MM screening [facility] BI w nav HISTORY: Screening TECHNIQUE: Craniocaudal and mediolateral oblique 3-D tomosynthesis images were obtained and synthetic 2-D images were generated. CAD analysis was submitted and interpreted. COMPARISON: Comparison to multiple prior studies sequentially, with oldest reviewed study dated 11/14. BREAST PARENCHYMAL COMPOSITION: Not dense: There are scattered areas of fibroglandular density. FINDINGS: Stable bilateral breast masses scattered throughout both breasts. Given the lack of interva l change these are considered benign. There is no evidence of suspicious mass, calcification, or arch itectural distortion to suggest malignancy in either breast. There has been no suspicious interval ch jaylen. IMPRESSION: 1. No mammographic evidence of malignancy. 2. Recommend routine screening mammography in one year. BI-RADS Category 2: Benign finding(s). Reviewed, dictated and finalized at location A. RT PRESS OPERATOR
== END 2023-04-11 13:37 | disposition home or self-care (01) ==
PROVIDERS: PCP Family Medicine; Visit Provider Family Medicine
DX: Z12.31 Encounter for screening mammogram for malignant neoplasm of breast (principal)
CPT/HCPCS: 77063; 77067

== ENCOUNTER 2023-04-19 09:42 | Emergency (ER) | payer MEDICARE, OTHER, SELFPAY ==
--- NOTE | 2023-04-19 09:52 | ED.URI ---
HPI - URI/Sore Throat General Chief Complaint: Upper Respiratory Infection Stated Complaint: cough,congestion,bilateral earache Time Seen by Provider: 04/19/23 10:45 Source: patient and RN notes reviewed Mode of arrival: ambulatory Limitations: no limitations History of Present Illness HPI Narrative: 77-year-old female presents concern for ongoing history of cough, sinus inflammation, pain, congestion, earache. She reports she saw her doctor 1 week ago they did a chest x-ray that was normal. She reports she has been taking steroids without relief. She reports she is feeling worse. She reports cough makes her lose her bladder control. MD elicited complaint: cough, nasal congestion and sinus pain Related Data Home Medications Medication Instructions Recorded Confirmed multivitamin 1 tablet PO DAILY 04/09/19 04/05/23 albuterol sulfate 90 mcg/actuation inhalation 01/19/23 04/05/23 aerosol inhaler amlodipine 5 mg tablet mg 01/19/23 04/05/23 Allergies Allergy/AdvReac Type Severity Reaction Status Date / Time No Known Allergies Allergy Verified 04/19/23 10:10 Review of Systems Review of Systems: CONSTITUTIONAL: Reports malaise, fever. EYES: Denies visual changes, redness, or discharge. ENT: Reports rhinorrhea, congestion, sinus pain, otalgia CARDIOVASCULAR: Denies chest pain, palpitations, or edema. RESPIRATORY: Reports cough. Denies dyspnea. GASTROINTESTINAL: Denies abdominal pain, nausea, vomiting, diarrhea SKIN: Denies rash or itching. MUSCULOSKELETAL: Denies myalgia. NEUROLOGIC: Denies headache. All systems reviewed & are unremarkable except as noted in HPI and below PMFSH Past Medical History Medical History Anxiety Depression History of TIA (transient ischemic attack) HTN (hypertension) Neuropathy Osteoarthritis RLS (restless legs syndrome) Sleep apnea Surgical History Surgical History History of cholecystectomy History of hysterectomy with bilateral oophorectomy Status post right hip replacement Family History Family History Sibling Patient's sister is in good health Patient's brother is in good health Family history of diabetes mellitus in first degree relative Family history of lung cancer Family history of malignant neoplasm of breast in first degree relative Father Family history of alcoholism Family history of coronary artery disease Mother Family history of pancreatic cancer Family history of diabetes mellitus in first degree relative Other Diabetes mellitus Hypertension Social History Social History Smoking packs per day: 1 Smoking cigarettes per day: 20.0 Years smoked: 10 Smoking pack-years: 10.00 Smoking status: Former smoker Tobacco type: cigarettes Second hand tobacco smoke exposure: No Smoking end date: 02/14/80 Alcohol intake: never Substance use: never Substance use type: does not use Lack of Transportation: No Lack of Food: Never True Current Housing: I Have Housing Concerned About Future Housing: No Difficulty Paying Gas/Electric Bills: No Difficulty Paying for Meds: No Currently Unemployed: No Education: High School Diploma/GED Difficulty w/ Childcare or Family Care: No Living arrangements: alone Occupation/Education: retired Gender identity (if verbalized by the patient): Female Spiritual care concerns: No Comments At time of signature, agree with nursing past medical, surgical, social and family history. There is no relevant family history pertinent to the presenting complaint Exam Narrative: GENERAL: Nontoxic-appearing, well-nourished, and in no acute distress. HEAD: Normocephalic EYES: PERRLA, conjunctivae clear ENT: Nares clear, turbinates edematous and erythemato
[2023-04-19 09:59] VITALS: BP 147/62; PULSE 74; RESP 20; TEMP 37.2; O2SAT 97
== END 2023-04-19 11:00 | disposition home or self-care (01) ==
PROVIDERS: Emergency Provider Nurse Practitioner; PCP Family Medicine
DX: J06.9 Acute upper respiratory infection, unspecified (principal); Z87.891 Personal history of nicotine dependence; I10 Essential (primary) hypertension; M19.90 Unspecified osteoarthritis, unspecified site; G25.81 Restless legs syndrome; G62.9 Polyneuropathy, unspecified; Z86.73 Personal history of transient ischemic attack (TIA), and cerebral infarction without residual deficits; Z96.641 Presence of right artificial hip joint
CPT/HCPCS: 99213; G0463

== ENCOUNTER 2023-07-06 13:25 | Outpatient (CLI) | payer MEDICARE, OTHER, SELFPAY ==
--- NOTE | ~2023-07-06 | XR_ITS ---
XR chest 2V DATE: 07/06/2023 13:55 INDICATION: Cough, shortness of breath TECHNIQUE: PA and lateral views COMPARISON: April 06, 2023 2 view chest FINDINGS: Normal heart size. No hilar or mediastinal enlargement. No pulmonary infiltrate or consolid ation, pleural effusion or pulmonary vascular congestion or pneumothorax. Osteoarthritic change of the glenohumeral joints. Mild dextroscoliosis of the thoracic spine. Degener ative spurring of the thoracic spine. Status post cholecystectomy. IMPRESSION: No active cardiopulmonary disease Reviewed, dictated and finalized at location B.
[2023-07-06 14:42] LABS: SARS-CoV-2 RNA PCR Negative (Negative)
== END 2023-07-06 13:26 | disposition home or self-care (01) ==
PROVIDERS: PCP Family Medicine; Visit Provider Physician Assistant
DX: R05.9 Cough, unspecified (principal); R50.9 Fever, unspecified; Z20.822 Contact with and (suspected) exposure to COVID-19
CPT/HCPCS: 71046; 87635

== ENCOUNTER 2023-07-28 09:44 | Outpatient (CLI) | payer MEDICARE, OTHER, SELFPAY ==
--- NOTE | 2023-07-31 12:40 | WPDPFTINT ---
PFT Procedure Performed PFT Procedure Performed Spirometry with Pre/Post Bronchodilator Plethysmography (Lung Vol) Diffusing Cap (DLCO) Flow Vol Loop PFT Interpretation Lung volumes were measured with the body plethysmography method. Lung volumes are unremarkable. Spirometry showed normal expiratory flow rates and a normal FEV1 to FVC ratio 77%. Following administration of a bronchodilator there was no significant increase in the expiratory flow rates. Lung diffusion capacity is within the normal range at 78% predicted. The flow volume loop is unremarkable. Impression: Spirometry, lung volumes, and lung diffusion capacity all within the normal range.
== END 2023-07-28 09:45 | disposition home or self-care (01) ==
LOC: ANHPFT 09:46
PROVIDERS: PCP Family Medicine; Visit Provider Physician Assistant
DX: R05.3 Chronic cough (principal)
CPT/HCPCS: 94060; 94726; 94729

== ENCOUNTER 2023-09-20 14:52 | Outpatient (CLI) | payer MEDICARE, OTHER, SELFPAY ==
--- NOTE | ~2023-09-20 | XR_ITS ---
XR lumbar spine 2-3V 09/20/2023 15:15 Indication: Sciatica. No acute injury. Procedure: 3 views lumbar spine Comparison: 11/16/2011 Findings: There is levoscoliosis. There is disc narrowing at L3-4 through L5-S1. There is grade 1 deg enerative spondylolisthesis at L4-5 secondary to facet hypertrophy. There is multilevel facet hypertr ophy. Sacral foramen are symmetric. Pedicles intact. There is partially visualized right hip arthropl asty. Impression: 1: Moderate-severe lumbar spondylosis with levoscoliosis. There has been interval progression at L3-4 through L5-S1 since prior study. Reviewed, dictated and finalized at location B. Impression: 1: Moderate-severe lumbar spondylosis with levoscoliosis. There has been interv al progression at L3-4 through L5-S1 since prior study.
[2023-09-20 15:06] LABS: Basophils Absolute Auto 0.1 K/mm3 (0.0-0.1); Basophils Percent Auto 0.8 % (0.2-1.2); Eosinophils Absolute Auto 0.3 K/mm3 (0-0.3); Eosinophils Percent Auto 2.6 % (0-4.4); Hematocrit 41.9 % (37.0-47.0); Hemoglobin 14.6 g/dL (12.0-15.0); Immature Granulocyte Absolute 0.06 K/mm3 (0.00-0.031); Immature Granulocyte Percent A 0.6 % (0-0.5); Lymphocytes Absolute Auto 3.83 K/mm3 (0.9-3.2); Lymphocytes Percent Auto 36.1 % (18.3-44.2); Mean Corpuscular HGB Conc 34.8 g/dl (32-36); Mean Corpuscular Hemoglobin 30.8 pg (26-34); Mean Corpuscular Volume 88.4 fl (80-100); Mean Platelet Volume 9.3 fl (7.4-10.4); Monocytes Percent Auto 9.5 % (2.6-8.5); Neutrophils Absolute Auto 5.4 K/mm3 (1.3-6.7); Neutrophils Percent Auto 50.4 % (45.5-73.1); Platelet Count Result 284 k/mm3 (150-375); Red Blood Count 4.74 M/mm3 (4.2-5.4); Red Cell Distribution Width 12.3 % (11.5-14.5); White Blood Count 10.6 K/mm3 (4.5-10.0)
[2023-09-20 15:28] LABS: Alanine Aminotransferase 24 U/L (6-35); Albumin Level 4.4 g/dL (3.5-5.1); Alkaline Phosphatase 130 U/L (38-126); Anion Gap 12 mmol/L (4-12); Aspartate Amino Transferase 27 U/L (14-36); Bilirubin,Total 0.6 mg/dL (0.2-1.3); Blood Urea Nitrogen 20 mg/dL (7-17); Calcium 9.2 mg/dL (8.4-10.2); Carbon Dioxide 23 mmol/L (22-30); Chloride 104 mmol/L (98-107); Estimated Glomerular Filt Rate > 60; Glucose 100 mg/dL (65-110); Potassium 4.4 mmol/L (3.4-5.0); Sodium 139 mmol/L (137-145)
[2023-09-20 16:32] LABS: Folic Acid 13.1 ng/mL (2.76->20)
== END 2023-09-20 14:53 | disposition home or self-care (01) ==
LOC: ANHLAB 14:54
PROVIDERS: PCP Family Medicine; Visit Provider Family Medicine
DX: M43.06 Spondylolysis, lumbar region (principal); M41.86 Other forms of scoliosis, lumbar region; R53.83 Other fatigue; I10 Essential (primary) hypertension
CPT/HCPCS: 36415; 72100; 80053; 82607; 82746; 84443; 85025

== ENCOUNTER 2023-10-31 10:05 | Outpatient (CLI) | payer MEDICARE, OTHER, SELFPAY ==
[2023-10-31 11:24] LABS: Alanine Aminotransferase 24 U/L (6-35); Albumin Level 4.6 g/dL (3.5-5.1); Alkaline Phosphatase 138 U/L (38-126); Anion Gap 11 mmol/L (4-12); Aspartate Amino Transferase 26 U/L (14-36); Bilirubin,Total 0.7 mg/dL (0.2-1.3); Blood Urea Nitrogen 17 mg/dL (7-17); CRP < 0.5 mg/dL (<1.0); Calcium 9.3 mg/dL (8.4-10.2); Carbon Dioxide 23 mmol/L (22-30); Chloride 105 mmol/L (98-107); Estimated Glomerular Filt Rate > 60; Glucose 99 mg/dL (65-110); Potassium 3.9 mmol/L (3.4-5.0); Sodium 139 mmol/L (137-145)
[2023-10-31 11:40] LABS: Hemoglobin A1C 5.5 % (<5.7)
[2023-10-31 11:42] LABS: Erythrocyte Sedimentation Rate 11 mm/hr (0-20)
[2023-11-02 15:14] LABS: Anti Nuclear Antibody Pattern Cytoplasmic; Anti Nuclear Antibody Titer 1:40 titer
== END 2023-10-31 10:06 | disposition home or self-care (01) ==
LOC: ANHLAB 10:10
PROVIDERS: PCP Family Medicine; Visit Provider Family Medicine
DX: R73.01 Impaired fasting glucose (principal); I10 Essential (primary) hypertension; M25.50 Pain in unspecified joint
CPT/HCPCS: 36415; 80053; 83036; 85652; 86038; 86039; 86140

== ENCOUNTER 2023-11-29 13:50 | Outpatient (CLI) | payer MEDICARE, OTHER, SELFPAY ==
--- NOTE | ~2023-11-29 | MR_ITS ---
MRI of the lumbar spine Clinical History: Sciatica Technique: Axial T2-weighted images, and sagittal T1-weighted, T2-weighted, and and T2 fat-sat images were acquired. Findings: There is no fracture or subluxation of the lumbar spine. Vertebral bodies maintain normal h eight and alignment. No suspicious bone marrow signal abnormality seen. At L1-L2, there is no significant disc bulge or herniation. There is advanced facet arthropathy. No c entral canal stenosis. There is minimal bilateral neural foraminal narrowing probably present. At L2-L3, there is no disc bulge or herniation. There is advanced facet hypertrophy. No spinal canal stenosis or definite neural foraminal narrowing. At L3-L4, there is diffuse disc bulge with severe facet arthropathy. No central canal stenosis. There is severe left neural foraminal narrowing, and mild to moderate right neural foraminal narrowing. At L4-L5, there is mild disc bulge with severe facet arthropathy. No central canal stenosis. There is mild left neural foraminal narrowing. Right neural foramen preserved. At L5-S1, there is severe degenerative disc narrowing without significant disc bulge or herniation. T here is moderate facet arthropathy. No central canal stenosis. There is moderate right neural foramin al narrowing. Left neural foramen preserved. Paravertebral soft tissues are unremarkable. Impression: Moderate degenerative spondylosis, as detailed above. No anne canal stenosis, but there is multileve l neural foraminal narrowing. Reviewed, dictated and finalized at [facility]. Impression: Moderate degenerative spondylosis, as detailed above. No anne canal stenosis, but there is multilevel neural foraminal narrowing.
== END 2023-11-29 13:51 | disposition home or self-care (01) ==
LOC: MICIMG 13:51
PROVIDERS: PCP Family Medicine; Visit Provider Family Medicine
DX: M54.30 Sciatica, unspecified side (principal); M47.896 Other spondylosis, lumbar region
CPT/HCPCS: 72148

== ENCOUNTER 2023-12-09 11:15 | Emergency (ER) | payer MEDICARE, OTHER, SELFPAY ==
--- NOTE | ~2023-12-09 | XR_ITS ---
EXAMINATION: XR hip LT 2V w AP pelvis DATE: 12/09/2023 11:54 INDICATION: Left hip pain. TECHNIQUE: An anteroposterior view of the pelvis and 2 views of left hip were obtained. COMPARISON: None. FINDINGS: There is a total right hip arthroplasty in near-anatomic alignment. No fracture. No peripro sthetic lucency to suggest loosening or infection. There is lumbar levoscoliosis and severe spondylos is. There is mild left hip osteoarthritis. Osteitis pubis is noted. There is moderate osteoarthritis of the sacroiliac joints. IMPRESSION: 1. Mild left hip osteoarthritis. 2. Total right hip arthroplasty in near-anatomic alignment. Reviewed, dictated and finalized at location A.
--- NOTE | ~2023-12-09 | XR_ITS ---
EXAMINATION: XR knee LT min 4V DATE: 12/09/2023 11:54 INDICATION: Left knee pain. TECHNIQUE: 4 views of left knee were obtained. COMPARISON: None. FINDINGS: Alignment is normal. No fracture. There is mild osteoarthritis of medial and lateral compar tments and moderate osteoarthritis of patellofemoral compartment. There is a small knee joint effusio n. IMPRESSION: 1. Moderate left knee osteoarthritis. 2. Small left knee joint effusion. Reviewed, dictated and finalized at location A.
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
[2023-12-09 13:01] VITALS: BP 137/82; PULSE 75; RESP 19; TEMP 36.9; O2SAT 98
== END 2023-12-09 12:36 | disposition home or self-care (01) ==
PROVIDERS: Emergency Provider General Practice; PCP Family Medicine
DX: M25.562 Pain in left knee (principal); M25.462 Effusion, left knee; I10 Essential (primary) hypertension; Z86.73 Personal history of transient ischemic attack (TIA), and cerebral infarction without residual deficits; Z87.891 Personal history of nicotine dependence
CPT/HCPCS: 73502; 73564; 99284

== ENCOUNTER 2023-12-12 09:29 | Outpatient (CLI) | payer MEDICARE, OTHER, SELFPAY ==
--- NOTE | ~2023-12-12 | MR_ITS ---
EXAMINATION: MR knee LT wo con DATE: 12/12/2023 10:12 INDICATION: M25.562 - Pain in left knee TECHNIQUE: Magnetic resonance imaging (MRI) of the left knee was performed without intravenous contra st. Sequences included axial PD-weighted FS FSE, coronal PD-weighted FSE and PD-weighted FS FSE, sagi ttal PD-weighted FSE, and sagittal T2-weighted FS FSE. COMPARISON: 12/09/2023 FINDINGS: Medial compartment: Vertical tear at the meniscal root ligament. Moderate cartilage thinning. Mild osteophytosis. Lateral compartment: Small apical tear at the meniscal body. Partial-thickness cartilage signal abnormality. Mild osteophy tosis. Patellofemoral compartment: Severe cartilage loss on the lateral facet and median ridge. Moderate osteophytosis. 12 mm ossific fr agment superior to the patella, likely representing a fractured enthesophyte or osteophyte. Retinacul a intact. Quadriceps enthesopathy. Ligaments and tendons: The ACL, PCL, and LCL are intact. Thickening of the MCL, as can be seen with chronic partial tear. Re maining flexor and extensor tendons are intact. Fluid: Small Nicole's cyst. Small joint effusion. Osseous/other: No suspicious focal or diffuse marrow signal. 11 mm ossific body along the posterior medial aspect of the medial femoral condyle, likely loose body. Prominent lateral fabella. IMPRESSION: Vertical tear of the posterior horn of the medial meniscus at the meniscal root ligament. Apical tear of the body of the lateral meniscus. Tricompartmental osteoarthritic changes, severe in the patellofemoral compartment. Reviewed, dictated and finalized at location K. IMPRESSION: Vertical tear of the posterior horn of the medial meniscus at the meniscal root ligament. Apical tear of the body of the lateral meniscus. Tricompartmental osteoarthritic changes, severe in the patellofemoral compartme nt.
== END 2023-12-12 09:30 | disposition home or self-care (01) ==
LOC: MICIMG 09:30
PROVIDERS: PCP Family Medicine; Visit Provider Orthopaedic Surgery
DX: S83.242D Other tear of medial meniscus, current injury, left knee, subsequent encounter (principal); X58.XXXD Exposure to other specified factors, subsequent encounter; M17.12 Unilateral primary osteoarthritis, left knee
CPT/HCPCS: 73721

== ENCOUNTER 2024-04-12 15:33 | Outpatient (CLI) | payer MEDICARE, OTHER, SELFPAY | END 2024-04-12 15:34 | disposition home or self-care (01) | LOC: ANHIMG 15:35 | PROVIDERS: PCP Family Medicine; Visit Provider Family Medicine | DX: Z12.31 Encounter for screening mammogram for malignant neoplasm of breast (principal) | CPT/HCPCS: 77063; 77067 ==

== ENCOUNTER 2024-05-02 10:53 | Outpatient (CLI) | payer MEDICARE, OTHER, SELFPAY ==
[2024-05-02 11:29] LABS: Hematocrit 43.7 % (37.0-47.0); Hemoglobin 14.9 g/dL (12.0-15.0); Mean Corpuscular HGB Conc 34.1 g/dl (32-36); Mean Corpuscular Hemoglobin 29.6 pg (26-34); Mean Corpuscular Volume 86.9 fl (80-100); Platelet Count Result 274 k/mm3 (150-375); Red Blood Count 5.03 M/mm3 (4.2-5.4); Red Cell Distribution Width 12.6 % (11.5-14.5); White Blood Count 9.2 K/mm3 (4.5-10.0)
[2024-05-02 11:41] LABS: Add Urine Microscopic? YES; Appearance Urine Clear (Clear); Bacteria Urine None Seen /hpf; Bilirubin Urine Negative (Negative); Blood Urine Negative (Negative); Color Urine Yellow (Yellow); Glucose Urine UA Negative (Negative); Ketones Urine Negative (Negative); Leukocyte Esterase Ur Trace LEU/UL (Negative); Nitrate Urine Negative (Negative); Non Pathogenic Casts 0-2; Protein Urine Negative (Negative); RBC Urine 0-2 /hpf (0-2); Squamous Epithelial Cell Urine Few /hpf (Few); Urobilinogen Urine 0.2 mg/dL (<2.0); WBC Urine 0-5 /hpf (0-3); pH Urine 5.5 (5.0-9.0)
--- OUTSIDE RECORDS SUMMARY | 2024-05-02 11:46 | XMS_ITS | Encounter Summary ---
Author Organization [facility] Address [address] [place] [id number] Care Team Providers Care Sugar Refiner Name Role Phone Unavailable Primary Care Provider Unavailabl e Encounter Details Date Type Department Care Team (Latest Contact Info) Description 12/19/2017 Abstract [facility] , Huey Mckenzie MD Social History Tobacco Use Types Packs/Day Years Used Date Smoking Tobacco: Never Assessed Comments Unknown Sex and Gender Information Value Date Recorded Sex Assigned at Not on file Legal Sex Female 7:48 PM CDT Gender Identity Not on file Sexual Orientation Not on file documented as of this encounter Plan of Treatment Not on file documented as of this encounter Visit Diagnoses Not on filedocumented in this encounter
--- OUTSIDE RECORDS SUMMARY | 2024-05-02 11:46 | XMS_ITS | Clinical Summary ---
Author Organization [facility] Address [facility] [place] [address] Care Team Providers Care Support Teacher Name Role Phone Unavailable Primary Care Provider Unavailabl e Social History Tobacco Use Types Packs/Day Years Used Date Smoking Tobacco: Never Assessed Comments Unknown Sex and Gender Information Value Date Recorded Sex Assigned at Not on file Legal Sex Female 7:48 PM CDT Gender Identity Not on file Sexual Orientation Not on file Last Filed Vital Signs Vital Sign Reading Time Taken Comments Blood Pressure 136/78 11/08/2012 10:51 AM CDT Pulse 71 11/08/2012 10:51 AM CDT Temperature - - Respiratory Rate - - Oxygen Saturation - - Inhaled Oxygen Concentration - - Weight 75.9 kg (167 lb 5 oz) 11/08/2012 10:51 AM CDT Height 162.6 cm (5' 4 ) 11/08/2012 10:51 AM CDT Body Mass Index 28.72 11/08/2012 10:51 AM CDT Plan of Treatment Health Maintenance Due Date Last Done Comments Hepatitis C 1963 DTaP, Tdap and Td Vaccines ( 1 - Tdap) 1965 Zoster Vaccines (1 of 2) 1996 Dexa Scan (General) 11/20/2011 Pneumococcal Vaccine: 65+ Ye ars (1 of 1 - PCV) 11/20/2011 RSV Immunization or 60+ Years (1 - 1-dose 75+ series) 2021 COVID-19 Vaccine ( - 2023-2 5 season) 2023 Influenza Adult (#1) 2023 Meningococcal B Vaccine Aged Out No l onger eligible based on patient's age to complete this topic Meningococcal Vaccine Aged Out No emilee chelsea eligible based on patient's age to complete this topic RSV Immunizations Under 20 Months Aged Out No longer eligible based on patient's age to complete this topic
[2024-05-02 11:55] LABS: Alanine Aminotransferase 29 U/L (6-35); Albumin Level 4.4 g/dL (3.5-5.1); Alkaline Phosphatase 144 U/L (38-126); Anion Gap 8 mmol/L (4-12); Aspartate Amino Transferase 26 U/L (14-36); Bilirubin,Total 0.8 mg/dL (0.2-1.3); Blood Urea Nitrogen 21 mg/dL (7-17); Calcium 9.5 mg/dL (8.4-10.2); Carbon Dioxide 27 mmol/L (22-30); Chloride 106 mmol/L (98-107); Cholesterol 218 mg/dL (0-200); Estimated Glomerular Filt Rate > 60; Glucose 90 mg/dL (65-110); HDL Direct 56 mg/dL; Potassium 4.2 mmol/L (3.4-5.0); Sodium 141 mmol/L (137-145); Triglycerides 162 mg/dL (<150)
[2024-05-02 12:05] LABS: LDL Cholesterol Direct 118 mg/dL
[2024-05-02 12:18] LABS: Vitamin D 25 Hydroxy 25.2 ng/mL
[2024-05-02 12:56] LABS: Folic Acid 9.4 ng/mL (2.76->20)
== END 2024-05-02 10:54 | disposition home or self-care (01) ==
LOC: ANHLAB 10:54
PROVIDERS: PCP Family Medicine; Visit Provider Family Medicine
DX: R53.83 Other fatigue (principal); E78.1 Pure hyperglyceridemia; E55.9 Vitamin D deficiency, unspecified; I10 Essential (primary) hypertension
CPT/HCPCS: 36415; 80053; 80061; 81001; 82306; 82607; 82746; 84443; 85027

== ENCOUNTER 2024-05-23 09:51 | Outpatient (CLI) | payer MEDICARE, OTHER, SELFPAY ==
--- OUTSIDE RECORDS SUMMARY | 2024-05-23 10:32 | XMS_ITS | Clinical Summary ---
Author Organization [facility] Address On license of [facility] [place] [address] Care Team Providers Care Legal Administrator Name Role Phone Unavailable Primary Care Provider [...] Vaccine ( - 2023-2 5 season) 2023 Meningococcal B Vaccine Aged Out No l onger eligible based on patient's age to complete this topic Meningococcal Vaccine Aged Out No emilee chelsea eligible based on patient's age to complete this topic RSV Immunizations Under 20 Months Aged Out No longer eligible based on patient's age to complete this topic
--- OUTSIDE RECORDS SUMMARY | 2024-05-23 10:32 | XMS_ITS | Encounter Summary ---
Author Organization [facility] Address [address] [place] [id number] Care Team Providers Care Lapeler Name Role Phone Unavailable Primary Care Provider Unavailabl e Encounter Details Date Type Department Care Team (Latest Contact Info) Description 12/19/2017 Abstract [facility] , Huey Mckenzie MD Social [...]
[2024-05-25 14:58] LABS: Immunoglobulin E 93 kU/L (<OR=114)
== END 2024-05-23 09:52 | disposition home or self-care (01) ==
PROVIDERS: PCP Family Medicine; Visit Provider Student in an Organized Health Care Education/Training Program
DX: L50.8 Other urticaria (principal); R22.0 Localized swelling, mass and lump, head
CPT/HCPCS: 36415; 82785; 86160

== ENCOUNTER 2024-08-09 12:18 | Outpatient (CLI) | payer MEDICARE, OTHER, SELFPAY ==
--- NOTE | ~2024-08-09 | DEXA_ITS ---
Bone Density Report Name: NICOLE SCHAFFER Age: 78 Sex: Female Ethnicity: White Date of : 1945 Indication: postmenopausal; screening for osteoporosis; hysterectomy; Referring Provider: NIKOLE SMART Study: Bone densitometry was performed. Exam Date: August 09, 2024 Accession number: [id number] Bone Density: Region BMD T-score Z-score Classification AP Spine(L1-L4) 1.132 0.8 3.3 Normal Femoral Neck (Left) 0.689 -1.4 0.8 Osteopenia Total Hip (Left) 0.907 -0.3 1.6 Normal World Health Organization criteria for BMD impression classify patients as: Normal (T-score at or above -1.0), Osteopenia (T-score between -1.0 and -2.5), or Osteoporosis (T-score at or below -2.5). 10-year Fracture Risk(1): Major Osteoporotic Fracture 12% Hip Fracture 2.5% Reported Risk Factors: [place] (), Neck BMD=0.689, BMI=30.3 (1) FRAX(R) Version 3.08. Fracture probability calculated for an untreated patient. Fracture probability may be lower if the patient has received treatment. Clinical Information Provided by Patient: Has used the following medications: Vitamin D Has the following medical conditions: Hysterectomy Patient maximum height was 63 Menopause Age: 56 No regular weight bearing exercise Drinks caffeinated beverages Onset of menses at age 11 Number of children 2 Impression: The patient has low bone mass, based on the Left Femoral Neck T-score. The patient has an estimated ten-year risk of hip fracture of 2.5% and an estimated ten-year risk of major fracture of 12%, based on the WHO FRAX algorithm. Discussion: BONE DENSITY IS LOW AT ONE OR MORE SKELETAL SITES. This patient's lowest T-score is low at one or more skeletal sites. It meets the World Health Organization's (WHO) criteria for ?low bone mass? (T-score between -1.0 and -2.5). The patient's 10-year risk of fracture as calculated by FRAX is less than the threshold where pharmacological therapy is recommended by the National Osteoporosis Foundation (NOF). However, all treatment decisions require clinical judgment and consideration of individual patient factors, including patient preferences, comorbidities, previous drug use, risk factors not captured in the FRAX model (e.g., frailty, falls, vitamin D deficiency, increased bone turnover, interval significant decline in bone density) and possible under or overestimation of fracture risk by FRAX. The patient should follow a healthful lifestyle (good nutrition with adequate calcium and vitamin D, and appropriate weight-bearing exercise). Follow-Up: Consider repeating this study in 2 to 3 years to reassess this patient's status, or sooner if there is some new clinical indication. Reported by: ROXANA on 08/09/2024 12:57:00 PM. Reviewed, dictated and finalized at location A.
== END 2024-08-09 12:19 | disposition home or self-care (01) ==
LOC: ANHIMG 12:20
PROVIDERS: PCP Family Medicine; Visit Provider Family Medicine
DX: Z78.0 Asymptomatic menopausal state (principal); M85.852 Other specified disorders of bone density and structure, left thigh
CPT/HCPCS: 77080

== ENCOUNTER 2024-08-31 08:02 | Emergency (ER) | payer MEDICARE, OTHER, SELFPAY ==
--- OUTSIDE RECORDS SUMMARY | 2024-08-31 08:08 | XMS_ITS | Clinical Summary ---
Author Organization [facility] Address [facility] [place] [address] Care Team Providers Care Sports Lawyer Name Role Phone Unavailable Primary Care Provider [...] 10:51 AM CDT Height 162.6 cm (5' 4) 11/08/2012 10:51 AM CDT Body Mass Index 28.72 11/08/2012 10:51 AM CDT Plan of Treatment Health Maintenance Due Date Last Done Comments Hepatitis C 1963 DTaP, Tdap and Td Vaccines ( 1 - Tdap) 1965 Pneumococcal Vaccine: 50+ Ye ars (1 of 1 - PCV) 1996 Zoster Vaccines (1 of 2) 1996 Dexa Scan (General) 11/20/2011 RSV Immunization or 60+ Years (1 [...]
--- OUTSIDE RECORDS SUMMARY | 2024-08-31 08:08 | XMS_ITS | Encounter Summary ---
Author Organization [facility] Address [address] [place] [id number] Care Team Providers Care Branch Operation Evaluation Manager Name Role Phone Unavailable Primary Care Provider Unavailabl e Encounter Details Date Type Department Care Team (Latest Contact Info) Description 12/19/2017 Abstract [facility] , Huey Mckenzie [...]
--- NOTE | 2024-08-31 08:12 | ED.SKABFB ---
HPI - Skin/Abscess/Foreign Bdy General Chief complaint: Skin/Abscess/Foreign Body Stated complaint: itching & burning on back Time Seen by Provider: 08/31/24 08:14 Source: patient Mode of arrival: ambulatory Limitations: no limitations History of Present Illness HPI narrative: Robyn is a 78-year-old female patient presenting to the clinic today with complaints of itching/burning painful rash on her back x 1 day. She reports her symptoms started last night. Rates her pain 3/10. Had applied hydrocortisone cream to the area without relief. No known insect bite. Denies any environmental changes, foods, or medications. No fevers, chills, or body aches. Has had a shingles shot. Related Data Allergies Allergy/AdvReac Type Severity Reaction Status Date / Time No Known Allergies Allergy Verified 08/31/24 08:16 Review of Systems Review of Systems: Pertinent positives per HPI. Patient denies any fever, chills, headache, visual changes, dizziness, cough, runny nose, sore throat, shortness of breath, chest pain, palpitations, nausea, vomiting, diarrhea, constipation, abdominal pain, or any urinary issues. [facility] Past Medical History Medical History Depression Osteoarthritis Neuropathy Sleep apnea History of TIA (transient ischemic attack) RLS (restless legs syndrome) Anxiety HTN (hypertension) Surgical History Surgical History Status post right hip replacement History of cholecystectomy History of hysterectomy with bilateral oophorectomy Family History Family History Sibling Patient's sister is in good health Patient's brother is in good health Family history of diabetes mellitus in first degree relative Family history of lung cancer Family history of malignant neoplasm of breast in first degree relative Father Family history of alcoholism Family history of coronary artery disease Mother Family history of pancreatic cancer Family history of diabetes mellitus in first degree relative Other Diabetes mellitus Hypertension Social History Social History Smoking packs per day: 1 Smoking cigarettes per day: 20.0 Years smoked: 10 Smoking pack-years: 10.00 Smoking status: Former smoker Tobacco type: cigarettes Second hand tobacco smoke exposure: No Smoking end date: 02/14/80 Alcohol intake: never Substance use: never Substance use type: does not use Current Housing: Decline to Answer Concerned About Future Housing: Decline to Answer Difficulty Paying Gas/Electric Bills: Decline to Answer Difficulty Paying for Meds: Decline to Answer Currently Unemployed: Decline to Answer Education: Decline to Answer Difficulty w/ Childcare or Family Care: Decline to Answer Living arrangements: alone Occupation/Education: retired Gender identity (if verbalized by the patient): Female Spiritual care concerns: No Comments At the time of my signature, I reviewed and agree with the nursing past medical, surgical, social, and family history. There is no relevant family history pertinent to the patient complaint. Exam Narrative: General: Well-developed, well nourished, in no apparent distress Head: Normocephalic, atraumatic. Cardio: Regular rate and rhythm, s1 and s2 normal, no murmur appreciated. Resp: Clear to auscultation bilaterally, no rhonchi, rales, wheezing or rubs. Integumentary: [place], warm, and dry, red, raised, erythematous base rash that is painful to touch, itching, and burning over the mid/left back. Does not cross the midline to the right side of her back. No vesicular lesions visualized. Course Course Emergency Course: Portions of this record may have been created with voice recognition software. Level of Care: Express Care Visit Vital Signs Vital signs: Vital Signs Temperature 36.8 C 08/31/24 08:15 Pulse Rate 74 08/31/24 08:15 Respiratory Rate 18 08/31/24 08:15 Blood Pressure 140/64 08/31/24 08:15 Pulse Oximetry 95 08/31/24 08:15 Oxygen Delivery Room Air 08/31/24 08:15 Temperature 36.8 C 08/31/24 08:15 Pulse Rate 74 08/31/24 08:15 Respiratory Rate 18 08/31/24 08:15 Blood Pressure 140/64 08/31/24 08:15 Pulse Oximetry 95 08/31/24 08:15 Oxygen Delivery Room Air 08/31/24 08:15 Vital signs reviewed MDM - Skin/Abscess/Foreign Bdy MDM Narrative Medical decision making narrative: At the time of visit patient is resting comfortably on the exam table. Patient appears to be nontoxic. Has red, erythematous base, painful/burning/ itching rash to the mid/left back just above the bra line, rash does not cross the midline of the spine to the right side. No vesicular lesion on the rash at this time. She denies any fevers, chills, body aches. No environmental changes. Has applied hydrocortisone cream without relief. No known insect bite. Plan: I suspect patient has early herpes zoster. Will send in prescription for valacyclovir. Supportive measures were discussed with the patient and they voiced understanding discharge instructions and agrees to treatment plan. Return precautions reviewed Differential Diagnosis Differential diagnosis: Likely abscess of skin or subcutaneous tissue, viral exanthem, dermatophytosis, urticaria, herpes zoster, allergic reaction to drug, cellulitis, eczema, insect bites, impetigo and contact dermatitis Discharge Plan Discharge Clinical Impression: Herpes zoster Qualifiers: Herpes zoster complications: without complications Qualified Code(s): B02.9 - Zoster without complications Patient Disposition: Home Condition: Stable Instructions: Antibiotic Form, Shingles (ED) Additional Instructions: Take valacyclovir as directed Increase fluids and stay well hydrated May apply lidocaine patch over the area to help alleviate pain May take Tylenol/Motrin as needed for pain If rash begins to blister and drain it is considered contagious Stay away from person's, immunocompromised persons, or anyone who has not received the chickenpox vaccine Follow-up with your doctor in 3-5 days if symptoms persist Go to the emergency room if symptoms worsen-fever, increase in pain, rash spreading, or any other concerning symptoms. Patient Language: Chadian Prescriptions: New valacyclovir [Valtrex] 1 gram tablet 1,000 mg PO Q8H 7 Days Qty: 21 0RF No Action omeprazole 40 mg capsule,delayed release(DR/EC) 40 mg PO DAILY Qty: 90 3RF clonazepam 0.5 mg tablet 0.5 mg PO BID Qty: 60 0RF amlodipine 5 mg tablet 5 mg PO DAILY Qty: 90 3RF fluoxetine 20 mg capsule See Rx Instructions .ROUTE .COMPLEX Qty: 90 3RF Dose Instruction: TAKE 1 CAPSULE EVERY DAY Rx Instructions: TAKE 1 CAPSULE EVERY DAY tramadol 50 mg tablet 50 mg PO Q8H PRN (Reason: pain) Qty: 30 0RF Follow-up/Referrals: Drake Briones MD [Primary Care Provider] - Time of Disposition: 08:22 Quality NIHSS Nursing Documentation ED NIHSS nursing documentation: reviewed/agree
[2024-08-31 08:15] VITALS: BP 140/64; PULSE 74; RESP 18; TEMP 36.8; O2SAT 95
== END 2024-08-31 08:30 | disposition home or self-care (01) ==
PROVIDERS: Emergency Provider Nurse Practitioner Family; PCP Family Medicine
DX: B02.9 Zoster without complications (principal); Z87.891 Personal history of nicotine dependence; I10 Essential (primary) hypertension; G25.81 Restless legs syndrome; M19.90 Unspecified osteoarthritis, unspecified site; G62.9 Polyneuropathy, unspecified; Z86.73 Personal history of transient ischemic attack (TIA), and cerebral infarction without residual deficits; Z96.641 Presence of right artificial hip joint; F41.9 Anxiety disorder, unspecified; F32.A Depression, unspecified
CPT/HCPCS: 99213; G0463

== ENCOUNTER 2024-10-20 15:32 | Emergency (ER) | payer MEDICARE, OTHER, SELFPAY ==
[2024-10-20] VITALS (7 sets, daily range): BP systolic 139–170; BP diastolic 59–117; PULSE 68–77; RESP 12–20; TEMP 36.4–37.1; O2SAT 95–99
--- NOTE | ~2024-10-20 | XR_ITS ---
EXAMINATION: XR chest 2V, 10/20/2024 17:05 CDT HISTORY: left sided CP and SOB COMPARISON: No comparisons available. Technique: 2 views obtained. Findings: The lungs are clear, no effusion. No pneumothorax. Heart is normal size. Mediastinal and hilar contours are within normal limits. Bony thorax no acute abnormality. Impression: No acute cardiopulmonary abnormality. Reviewed, dictated and finalized at location A. Impression: No acute cardiopulmonary abnormality.
--- NOTE | ~2024-10-20 | CT_ITS ---
EXAMINATION: CT brain wo shubham, 10/20/2024 16:45 CDT HISTORY: R sided ALLAN COMPARISON: No comparisons available. Technique: Axial images obtained of the brain without contrast. One or more of the following dose reduction techniques were used: automated exposure control, adjustment of the mA and/or kV according to patient size, use of iterative reconstruction technique. Findings: No acute infarct or parenchymal hemorrhage. No abnormal mass or mass effect. No midline shift. No extra-axial fluid collections. No hydrocephalus. Mastoid air cells unremarkable. Sinuses and orbits unremarkable. No acute fracture. No significant facial or scalp soft tissue swelling evident. No radiopaque foreign body is seen. Impression: 1.No acute intracranial abnormality. Reviewed, dictated and finalized at location A. Impression: 1.No acute intracranial abnormality.
--- NOTE | 2024-10-20 15:33 | ECG_ITS ---
Test Date: 2024-10-20 15:39:27 Measurements Intervals [place] Rate: 78 P: 51 MN: 151 QRS: -1 QRSD: 85 T: 25 QT: 381 QTc: 436 Interpretive Statements SINUS RHYTHM NONSPECIFIC ST- T WAVE CHANGES No previous ECG available for comparison Electronically Signed On 10-20-2024 16:10:47 CDT by Darinel Nolen M.D.
--- OUTSIDE RECORDS SUMMARY | 2024-10-20 15:34 | XMS_ITS | Clinical Summary ---
Author Organization [facility] Address [facility] [place] [address] Care Team Providers Care Egg Worker Name Role Phone Unavailable Primary Care Provider [...] COVID-19 Vaccine ( - 2023-2 5 season) 2024 Meningococcal B Vaccine Aged Out No l onger eligible based on patient's age to complete this topic Meningococcal Vaccine Aged Out No emilee chelsea eligible based on patient's age to complete this topic RSV Immunizations Under 20 Months Aged Out No longer eligible based on patient's age to complete this topic
--- OUTSIDE RECORDS SUMMARY | 2024-10-20 15:34 | XMS_ITS | Encounter Summary ---
Author Organization [facility] Address [address] [place] [address] Care Team Providers Care Maxillofacial Surgeon Name Role Phone Unavailable Primary Care Provider Unavailabl e Encounter Details Date Type Department Care Team (Latest Contact Info) Description 12/19/2017 Abstract [facility] , Huey Mckenzie MD Social [...]
[2024-10-20 15:58] LABS: Hematocrit 41.5 % (37.0-47.0); Hemoglobin 14.0 g/dL (12.0-15.0); Immature Granulocyte Percent A 0.4 % (0-0.5); Lymphocytes Absolute Auto 4.21 K/mm3 (0.9-3.2); Mean Corpuscular HGB Conc 33.7 g/dl (32-36); Mean Corpuscular Hemoglobin 29.7 pg (26-34); Mean Corpuscular Volume 87.9 fl (80-100); Nucleated Red Blood Cells Absolute Auto 0.000 K/mm3 (0.0-0.012); Nucleated Red Blood Cells Perc 0.0 % (0.0-0.2); Platelet Count Result 295 k/mm3 (150-375); Red Blood Count 4.72 M/mm3 (4.2-5.4); White Blood Count 11.8 K/mm3 (4.5-10.0)
[2024-10-20 16:09] LABS: Alanine Aminotransferase 24 U/L (6-35); Albumin Level 4.3 g/dL (3.5-5.1); Alkaline Phosphatase 150 U/L (38-126); Anion Gap 9 mmol/L (4-12); Aspartate Amino Transferase 32 U/L (14-36); Bilirubin,Total 0.5 mg/dL (0.2-1.3); Blood Urea Nitrogen 21 mg/dL (7-17); Calcium 9.4 mg/dL (8.4-10.2); Carbon Dioxide 24 mmol/L (22-30); Chloride 107 mmol/L (98-107); Estimated CRCL calculation 64 ml/min; Estimated Glomerular Filt Rate > 60; Glucose 90 mg/dL (65-110); Lipase 173 U/L (23-300); Potassium 3.7 mmol/L (3.4-5.0); Sodium 140 mmol/L (137-145); Total Protein 7.1 g/dL (6.3-8.2)
--- OUTSIDE RECORDS SUMMARY | 2024-10-20 16:09 | XMS_ITS | Clinical Summary ---
Author Organization [facility] Address [facility] [place] [address] Care Team Providers Care Project Developer Name Role Phone Unavailable Primary Care Provider [...]
--- OUTSIDE RECORDS SUMMARY | 2024-10-20 16:09 | XMS_ITS | Encounter Summary ---
Author Organization [facility] Address [address] [place] [address] Care Team Providers Care Quality Control Chemist Name Role Phone Unavailable Primary Care Provider Unavailabl e Encounter Details Date Type Department Care Team (Latest Contact Info) Description 12/19/2017 Abstract [facility] , Huey Mckenzie MD [...]
[2024-10-20 16:10] LABS: INR 1.0; Prothrombin Time 13.3 Seconds (11.1-14.7)
[2024-10-20 16:11] LABS: Partial Thromboplastin Time 24.0 Seconds (22.3-36.8)
[2024-10-20 16:15] LABS: Troponin I < 0.012 ng/mL (0.000-0.034)
--- NOTE | 2024-10-20 16:26 | ED.CHESTPAIN ---
HPI - Chest Pain General Chief Complaint: Chest Pain Stated Complaint: left sided CP, SOB Time Seen by Provider: 10/20/24 15:49 History of Present Illness HPI narrative: Patient is a 78-year-old female who presents to the ER with intermittent sharp left-sided chest pain. She reports this morning she woke up with this symptom and experienced some dizziness. Patient reports she when outside and her symptoms returned/worsened this afternoon. She endorses a history of a hysterectomy, cholecystitis, high blood pressure, and GERD. Patient also endorses a more frequent headache behind her right eye. She denies any recent fevers, shortness of breath, wheezing, or lower extremity swelling. Related Data Allergies Allergy/AdvReac Type Severity Reaction Status Date / Time No Known Allergies Allergy Verified 08/31/24 08:16 Review of Systems Review of Systems: All systems reviewed & are unremarkable except as noted in HPI and below PMFSH Past Medical History Medical History Depression Osteoarthritis Neuropathy Sleep apnea History of TIA (transient ischemic attack) RLS (restless legs syndrome) Anxiety HTN (hypertension) Surgical History Surgical History Status post right hip replacement History of cholecystectomy History of hysterectomy with bilateral oophorectomy Family History Family History Sibling Patient's sister is in good health Patient's brother is in good health Family history of diabetes mellitus in first degree relative Family history of lung cancer Family history of malignant neoplasm of breast in first degree relative Father Family history of alcoholism Family history of coronary artery disease Mother Family history of pancreatic cancer Family history of diabetes mellitus in first degree relative Other Diabetes mellitus Hypertension Social History Social History Smoking packs per day: 1 Smoking cigarettes per day: 20.0 Years smoked: 10 Smoking pack-years: 10.00 Smoking status: Former smoker Tobacco type: cigarettes Second hand tobacco smoke exposure: No Smoking end date: 02/14/80 Alcohol intake: never Substance use: never Substance use type: does not use Current Housing: Decline to Answer Concerned About Future Housing: Decline to Answer Difficulty Paying Gas/Electric Bills: Decline to Answer Difficulty Paying for Meds: Decline to Answer Currently Unemployed: Decline to Answer Education: Decline to Answer Difficulty w/ Childcare or Family Care: Decline to Answer Living arrangements: alone Occupation/Education: retired Gender identity (if verbalized by the patient): Female Spiritual care concerns: No Course Vital Signs Vital signs: Vital Signs Temperature 37.1 C 10/20/24 15:38 Pulse Rate 77 10/20/24 15:38 Respiratory Rate 20 10/20/24 15:38 Blood Pressure 170/74 H 10/20/24 15:38 Pulse Oximetry 99 10/20/24 15:38 Oxygen Delivery Room Air 10/20/24 15:38 Temperature 36.4 C 10/20/24 18:16 Pulse Rate 76 10/20/24 18:16 Respiratory Rate 16 10/20/24 18:16 Blood Pressure 150/59 H 10/20/24 18:16 Pulse Oximetry 99 10/20/24 18:16 Oxygen Delivery Room Air 10/20/24 15:38 MDM - Chest Pain MDM Narrative Medical decision making narrative: Patient is a 78-year-old female who presents to the ER with intermittent sharp left-sided chest pain. She reports this morning she woke up with this symptom and experienced some dizziness. Patient reports she when outside and her symptoms returned/worsened this afternoon. She endorses a history of a hysterectomy, cholecystitis, high blood pressure, and GERD. Patient also endorses a more frequent headache behind her right eye. She denies any recent fevers, shortness of breath, wheezing, or lower extremity swelling. Labs Ordered: CBC, CMP, COVID/flu/RSV, troponin, UA, lipase, PTT, INR, BNP Imaging Ordered: CT brain, chest x-ray Medications Ordered: Results: Pt's chest x-ray indicates No acute cardiopulmonary abnormality. Pt's CT scan indicates No acute infarct or parenchymal hemorrhage. No abnormal mass or mass effect. No midline shift. No extra-axial fluid collections. No hydrocephalus. Mastoid air cells unremarkable. Sinuses and orbits unremarkable. No acute fracture. No significant facial or scalp soft tissue swelling evident. No radiopaque foreign body is seen. Diagnosis: costochondritis, muscle strain Patient Education/Shared MDM: Upon reexamination, patient's left chest pain is reproducible with palpation. Results of lab work and imaging shared with patient. She endorses improvement of symptoms following Toradol medication administration but declined GI cocktail. Patient strongly advised to follow-up with her PCP as soon as possible. She will be discharged home with a prescription for ibuprofen 800 mg and cyclobenzaprine. Strict return precautions provided. Patient verbalized understanding and is in agreement with plan. Vital signs stable at time of discharge. All questions answered. Differential Diagnosis Differential diagnosis: Likely fracture of rib, atypical chest pain, st elevation myocardial infarction, costochondritis and other (Muscle strain) Lab Data Attestation: I reviewed the patient's lab results. 10/20/24 15:46 10/20/24 15:46 Labs: Lab Results 10/20/24 10/20/24 10/20/24 Range/Units 15:46 17:10 17:51 WBC 11.8 H (4.5-10.0) K/mm3 RBC 4.72 (4.2-5.4) M/mm3 Hgb 14.0 (12.0-15.0) g/dL Hct 41.5 (37.0-47.0) % MCV 87.9 (80-100) fl MCH 29.7 (26-34) pg MCHC 33.7 (32-36) g/dl RDW 12.6 (11.5-14.5) % Plt Count 295 (150-375) k/mm3 MPV 9.4 (7.4-10.4) fl Immature Gran % (Auto) 0.4 (0-0.5) % Neut % (Auto) 50.6 (45.5-73.1) % Lymph % (Auto) 35.7 (18.3-44.2) % Wilson % (Auto) 9.5 H (2.6-8.5) % Eos % (Auto) 3.1 (0-4.4) % Baso % (Auto) 0.7 (0.2-1.2) % Lymph # (Auto) 4.21 H (0.9-3.2) K/mm3 Wilson # (Auto) 1.1 H (0.1-0.6) K/mm3 Eos # (Auto) 0.4 H (0-0.3) K/mm3 Baso # (Auto) 0.1 (0.0-0.1) K/mm3 Abs Immat Gran (auto) 0.05 H (0.00-0.031) K/mm3 Absolute Neuts (auto) 6.0 (1.3-6.7) K/mm3 Absolute Nucleated RBC 0.000 (0.0-0.012) K/mm3 Nucleated RBC % 0.0 (0.0-0.2) % PT 13.3 (11.1-14.7) Seconds INR 1.0 APTT 24.0 (22.3-36.8) Seconds Sodium 140 (137-145) mmol/L Potassium 3.7 (3.4-5.0) mmol/L Chloride 107 (98-107) mmol/L Carbon Dioxide 24 (22-30) mmol/L Anion Gap 9 (4-12) mmol/L BUN 21 H (7-17) mg/dL Creatinine 0.63 L (0.7-1.0) mg/dL Estim Creat Clear Calc 64 ml/min Estimated GFR > 60 (59 - ) Glucose 90 (65-110) mg/dL Calcium 9.4 (8.4-10.2) mg/dL Total Bilirubin 0.5 (0.2-1.3) mg/dL AST 32 (14-36) U/L ALT 24 (6-35) U/L Alkaline Phosphatase 150 H (38-126) U/L Troponin I < 0.012 (0.000-0.034) ng/mL NT-Pro-B Natriuret Pep 40 (19.9-100) pg/mL Total Protein 7.1 (6.3-8.2) g/dL Albumin 4.3 (3.5-5.1) g/dL Lipase 173 (23-300) U/L Urine Color Yellow (Yellow) Urine Appearance Clear (Clear) Urine pH 5.5 (5.0-9.0) Ur Specific [place] 1.025 (1.001-1.035) Urine Protein Negative (Negative) mg/dL Urine Glucose (UA) Negative (Negative) mg/dL Urine Ketones Negative (Negative) mg/dL Ur Blood (Man) Negative (Negative) Urine Nitrate Negative (Negative) Urine Bilirubin Negative (Negative) Urine Urobilinogen 0.2 (<2.0) mg/dL Leukocyte Esterase Rfl Negative (Negative) MATTHEW/UL Urine RBC 0-2 (0-2) /hpf Urine WBC 0-5 (0-3) /hpf Ur Squamous Epith Cells None seen (Few) /hpf Urine Bacteria None seen /hpf Urine Casts 0-2 Influenza A (RT-PCR) Negative (Negative) Influenza B (RT-PCR) Negative (Negative) RSV (RT-PCR) Negative (Negative) SARS-CoV-2 RNA (RT-PCR) Negative (Negative) 10/20/24 Range/Units 18:45 WBC (4.5-10.0) K/mm3 RBC (4.2-5.4) M/mm3 Hgb (12.0-15.0) g/dL Hct (37.0-47.0) % MCV (80-100) fl MCH (26-34) pg MCHC (32-36) g/dl RDW (11.5-14.5) % Plt Count (150-375) k/mm3 MPV (7.4-10.4) fl Immature Gran % (Auto) (0-0.5) % Neut % (Auto) (45.5-73.1) % Lymph % (Auto) (18.3-44.2) % Wilson % (Auto) (2.6-8.5) % Eos % (Auto) (0-4.4) % Baso % (Auto) (0.2-1.2) % Lymph # (Auto) (0.9-3.2) K/mm3 Wilson # (Auto) (0.1-0.6) K/mm3 Eos # (Auto) (0-0.3) K/mm3 Baso # (Auto) (0.0-0.1) K/mm3 Abs Immat Gran (auto) (0.00-0.031) K/mm3 Absolute Neuts (auto) (1.3-6.7) K/mm3 Absolute Nucleated RBC (0.0-0.012) K/mm3 Nucleated RBC % (0.0-0.2) % PT (11.1-14.7) Seconds INR APTT (22.3-36.8) Seconds Sodium (137-145) mmol/L Potassium (3.4-5.0) mmol/L Chloride (98-107) mmol/L Carbon Dioxide (22-30) mmol/L Anion Gap (4-12) mmol/L BUN (7-17) mg/dL Creatinine (0.7-1.0) mg/dL Estim Creat Clear Calc ml/min Estimated GFR (59 - ) Glucose (65-110) mg/dL Calcium (8.4-10.2) mg/dL Total Bilirubin (0.2-1.3) mg/dL AST (14-36) U/L ALT (6-35) U/L Alkaline Phosphatase (38-126) U/L Troponin I Pending (0.000-0.034) ng/mL NT-Pro-B Natriuret Pep (19.9-100) pg/mL Total Protein (6.3-8.2) g/dL Albumin (3.5-5.1) g/dL Lipase (23-300) U/L Urine Color (Yellow) Urine Appearance (Clear) Urine pH (5.0-9.0) Ur Specific [place] (1.001-1.035) Urine Protein (Negative) mg/dL Urine Glucose (UA) (Negative) mg/dL Urine Ketones (Negative) mg/dL Ur Blood (Man) (Negative) Urine Nitrate (Negative) Urine Bilirubin (Negative) Urine Urobilinogen (<2.0) mg/dL Leukocyte Esterase Rfl (Negative) MATTHEW/UL Urine RBC (0-2) /hpf Urine WBC (0-3) /hpf Ur Squamous Epith Cells (Few) /hpf Urine Bacteria /hpf Urine Casts Influenza A (RT-PCR) (Negative) Influenza B (RT-PCR) (Negative) RSV (RT-PCR) (Negative) SARS-CoV-2 RNA (RT-PCR) (Negative) Imaging Data Attestation: I personally reviewed and interpreted this imaging study as follows: Radiologist's impression: Impressions Head CT 10/20/24 17:18 Impression: 1.No acute intracranial abnormality. Chest X-Ray 10/20/24 17:26 Impression: No acute cardiopulmonary abnormality. Discharge Plan Discharge Clinical Impression: Acute costochondritis, History of TIA (transient ischemic attack), Muscle strain of chest wall, Atypical chest pain Patient Disposition: Home Condition: Stable Instructions: Antibiotic Form, Costochondritis (ED), Chest Wall Pain (ED) Additional Instructions: Please return to the ER with any worsening symptoms. Follow-up with primary care provider as soon as possible for re-evaluation. Take all medications as prescribed, including regularly scheduled medications. You may take Tylenol and ibuprofen together for pain control. Please take muscle relaxants sparingly and with caution as they may make you more prone to falls. You may place lidocaine patches on the area of tenderness. Patient Language: Icelandic Prescriptions: New lidocaine 5 % adhesive patch,medicated 2 patch topical DAILY Qty: 30 0RF Rx Instructions: leave on most painful area for up to 12 hrs ibuprofen 800 mg tablet 800 mg PO TID PRN (Reason: pain) Qty: 30 0RF cyclobenzaprine 5 mg tablet 5 mg PO TID PRN (Reason: muscle spasm) Qty: 20 0RF No Action valacyclovir [Valtrex] 1 gram tablet 1,000 mg PO Q8H 7 Days Qty: 21 0RF omeprazole 40 mg capsule,delayed release(DR/EC) 40 mg PO DAILY Qty: 90 3RF clonazepam 0.5 mg tablet 0.5 mg PO BID Qty: 60 0RF fluoxetine 20 mg capsule See Rx Instructions .ROUTE .COMPLEX Qty: 90 3RF Dose Instruction: TAKE 1 CAPSULE EVERY DAY Rx Instructions: TAKE 1 CAPSULE EVERY DAY tramadol 50 mg tablet 50 mg PO Q8H PRN (Reason: pain) Qty: 30 0RF amlodipine 5 mg tablet 5 mg PO DAILY Qty: 90 3RF Follow-up/Referrals: Draek Briones MD [Primary Care Provider, Family Practice] Time of Disposition: 21:01
[2024-10-20] MEDS: ASPIRIN 81 MG CHEWABLE TABLET 324 MG PO (16:47)
[2024-10-20] MEDS: SODIUM CHLORIDE 0.9% IV 1,000 ML 999 ML IV CONT (16:48)
[2024-10-20 16:54] LABS: NT Pro B Type Natriuretic Pept 40 pg/mL (19.9-100)
[2024-10-20 17:52] LABS: Influenza A QL RT-PCR Negative (Negative); Influenza B QL RT-PCR Negative (Negative); RSV RNA, RT-PCR Negative (Negative); SARS-CoV-2 RNA PCR Negative (Negative)
[2024-10-20 18:03] LABS: Non Pathogenic Casts 0-2
[2024-10-20 18:06] LABS: Add Urine Microscopic? NO; Appearance Urine Clear (Clear); Glucose Urine UA Negative (Negative); Specific Grav Ur 1.025 (1.001-1.035)
[2024-10-20 18:07] LABS: Leukocyte Esterase Ur Negative LEU/UL (Negative); Nitrate Urine Negative (Negative)
[2024-10-20 19:29] LABS: Troponin I < 0.012 ng/mL (0.000-0.034)
[2024-10-20] MEDS: KETOROLAC 15 MG/ML VIAL (*BKC) IV PUSH (20:00)
== END 2024-10-20 21:11 | disposition home or self-care (01) ==
PROVIDERS: Emergency Medicine; Emergency Provider Registered Nurse; PCP Family Medicine
DX: M94.0 Chondrocostal junction syndrome [Tietze] (principal); S29.011A Strain of muscle and tendon of front wall of thorax, initial encounter; R06.02 Shortness of breath; Z20.822 Contact with and (suspected) exposure to COVID-19; I10 Essential (primary) hypertension; K21.9 Gastro-esophageal reflux disease without esophagitis; M19.90 Unspecified osteoarthritis, unspecified site; G62.9 Polyneuropathy, unspecified; G47.30 Sleep apnea, unspecified; G25.81 Restless legs syndrome; F41.9 Anxiety disorder, unspecified; Z96.641 Presence of right artificial hip joint; Z86.73 Personal history of transient ischemic attack (TIA), and cerebral infarction without residual deficits; Z87.891 Personal history of nicotine dependence; Z90.710 Acquired absence of both cervix and uterus; Z90.49 Acquired absence of other specified parts of digestive tract; Z90.722 Acquired absence of ovaries, bilateral; Z79.899 Other long term (current) drug therapy; X58.XXXA Exposure to other specified factors, initial encounter; R94.31 Abnormal electrocardiogram [ECG] [EKG]
CPT/HCPCS: 36415; 70450; 71046; 80053; 81003; 83690; 83880; 84484; 85025; 85610; 85730; 87637; 93005; 96361; 96374; 99284; A9270; J1885; J7030

== ENCOUNTER 2024-10-29 11:02 | Outpatient (CLI) | payer MEDICARE, OTHER, SELFPAY ==
[2024-10-29 11:49] LABS: Hemoglobin A1C 5.3 % (<5.7)
--- OUTSIDE RECORDS SUMMARY | 2024-10-29 13:09 | XMS_ITS | Encounter Summary ---
Author Organization [facility] Address [address] [place] [address] Care Team Providers Care Entry Analyst Name Role Phone Unavailable Primary Care Provider Unavailabl e Encounter Details Date Type Department Care Team (Latest Contact Info) Description 12/19/2017 Abstract [facility] , Huey Mckenzie MD [...]
--- OUTSIDE RECORDS SUMMARY | 2024-10-29 13:09 | XMS_ITS | Clinical Summary ---
Author Organization [facility] Address [facility] [place] [address] Care Team Providers Care Braille Transcriber Name Role Phone Unavailable Primary Care Provider [...]
[2024-10-29 13:19] LABS: Hematocrit 41.5 % (37.0-47.0); Hemoglobin 14.2 g/dL (12.0-15.0); Immature Granulocyte Percent A 0.4 % (0-0.5); Lymphocytes Absolute Auto 3.45 K/mm3 (0.9-3.2); Mean Corpuscular HGB Conc 34.2 g/dl (32-36); Mean Corpuscular Hemoglobin 29.6 pg (26-34); Mean Corpuscular Volume 86.5 fl (80-100); Nucleated Red Blood Cells Absolute Auto 0.000 K/mm3 (0.0-0.012); Nucleated Red Blood Cells Perc 0.0 % (0.0-0.2); Platelet Count Result 295 k/mm3 (150-375); Red Blood Count 4.80 M/mm3 (4.2-5.4); White Blood Count 10.3 K/mm3 (4.5-10.0)
[2024-10-29 14:14] LABS: Alanine Aminotransferase 30 U/L (6-35); Albumin Level 4.4 g/dL (3.5-5.1); Alkaline Phosphatase 134 U/L (38-126); Anion Gap 9 mmol/L (4-12); Aspartate Amino Transferase 35 U/L (14-36); Bilirubin,Total 0.8 mg/dL (0.2-1.3); Blood Urea Nitrogen 20 mg/dL (7-17); Calcium 9.1 mg/dL (8.4-10.2); Carbon Dioxide 24 mmol/L (22-30); Chloride 104 mmol/L (98-107); Estimated Glomerular Filt Rate > 60; Glucose 108 mg/dL (65-110); Potassium 3.9 mmol/L (3.4-5.0); Sodium 137 mmol/L (137-145); Total Protein 7.3 g/dL (6.3-8.2)
== END 2024-10-29 11:03 | disposition home or self-care (01) ==
PROVIDERS: PCP Family Medicine; Visit Provider Physician Assistant
DX: D72.829 Elevated white blood cell count, unspecified (principal); I10 Essential (primary) hypertension; E78.1 Pure hyperglyceridemia; R73.01 Impaired fasting glucose
CPT/HCPCS: 36415; 80053; 83036; 85025

== ENCOUNTER 2024-12-09 01:59 | Day surgery (SDC) | payer MEDICARE, OTHER, SELFPAY ==
[2024-11-28 14:01] VITALS: BMI 28.9
--- OUTSIDE RECORDS SUMMARY | 2024-12-09 02:01 | XMS_ITS | Clinical Summary ---
Author Organization [facility] Address [address] [place] [address] Care Team Providers Care Data Analyst Name Role Phone Unavailable Primary Care [...] 75+ series) 2021 COVID-19 Vaccine ( - 2024-2 6 season) 2024 Influenza Adult (#1) 2024 Hepatitis A Vaccines Aged Out No long er eligible based on patient's age to complete this topic Meningococcal B Vaccine Aged Out No l onger eligible based on patient's age to complete this topic Meningococcal Vaccine Aged Out No emilee chelsea eligible based on patient's age to complete this topic RSV Immunizations Under 20 Months Aged Out No longer eligible based on patient's age to complete this topic
--- OUTSIDE RECORDS SUMMARY | 2024-12-09 02:01 | XMS_ITS | Encounter Summary ---
Author Organization [facility] Address [address] [place] [address] Care Team Providers Care Cream Buyer Name Role Phone Unavailable Primary Care Provider Unavailabl e Encounter Details Date Type Department Care Team (Latest Contact Info) Description 12/19/2017 Abstract [facility] , Huey [...]
[2024-12-09 10:16] VITALS: BP 125/44; PULSE 87; RESP 18; TEMP 36.8; O2SAT 98
--- NOTE | 2024-12-09 10:33 | WPDANESEPPF ---
Anes - Initial Pre Proc Eval Procedure: Operation Date: 12/09/24 10:30 Proposed Procedures p Esophagogastroduodenoscopy - Reese Rose MD Date/Time: 12/09/24 10:33 Surgeon: Reese Rose MD Pre Op Diagnosis: Gastro-esophageal reflux disease without esophagit Patient Data Age: 79 Gender: F Height: 1.6 m Weight: 76 kg Last Vital Signs Temp 36.8 C 12/09/24 10:16 Pulse 87 12/09/24 10:16 Resp 18 12/09/24 10:16 BP 125/44 L 12/09/24 10:16 Pulse Ox 98 12/09/24 10:16 O2 Del Method Room Air 12/09/24 10:16 Allergies Allergy/AdvReac Type Severity Reaction Status Date / Time No Known Allergies Allergy Verified 12/09/24 10:08 Home Medications ?Medication ?Instructions ?Recorded ?Confirmed ?Type fluoxetine 20 mg capsule See Rx Instructions .Route 04/16/24 11/28/24 Rx .COMPLEX #90 caps clonazepam 0.5 mg tablet 0.5 mg PO BID #60 tabs 04/30/24 11/28/24 Rx omeprazole 40 mg capsule,delayed 40 mg PO DAILY #90 caps 04/30/24 11/28/24 Rx release tramadol 50 mg tablet 50 mg PO Q8H PRN pain #30 tabs 07/29/24 11/28/24 Rx amlodipine 5 mg tablet 5 mg PO DAILY #90 tabs 09/20/24 11/28/24 Rx triamcinolone acetonide 0.1 % 1 applic topical BID #80 grams 10/29/24 11/28/24 Rx topical cream Patient hx anesthesia problems: none Family hx anesthesia problems: none Results Review: All pre-operative results and documents have been reviewed as part of the pre-operative evaluation. [facility] Past Medical History Medical History Depression Osteoarthritis Neuropathy Sleep apnea History of TIA (transient ischemic attack) RLS (restless legs syndrome) Anxiety HTN (hypertension) Surgical History Surgical History Status post right hip replacement History of cholecystectomy History of hysterectomy with bilateral oophorectomy Family History Family History Sibling Patient's sister is in good health Patient's brother is in good health Family history of diabetes mellitus in first degree relative Family history of lung cancer Family history of malignant neoplasm of breast in first degree relative Father Family history of alcoholism Family history of coronary artery disease Mother Family history of pancreatic cancer Family history of diabetes mellitus in first degree relative Other Diabetes mellitus Hypertension Social History Social History Smoking packs per day: 0 Smoking cigarettes per day: 0.0 Years smoked: 10 Smoking pack-years: 0.00 Smoking status: Former smoker Tobacco type: cigarettes Second hand tobacco smoke exposure: No Smoking end date: 02/14/80 Alcohol intake: never Substance use: never Substance use type: does not use Current Housing: Decline to Answer Concerned About Future Housing: Decline to Answer Difficulty Paying Gas/Electric Bills: Decline to Answer Difficulty Paying for Meds: Decline to Answer Currently Unemployed: Decline to Answer Education: Decline to Answer Difficulty w/ Childcare or Family Care: Decline to Answer Living arrangements: alone Occupation/Education: retired Gender identity (if verbalized by the patient): Female Spiritual care concerns: No Anes - Eval Final PreProcedure Day of Procedure 12/09/24 10:33 Patient weight: overweight Heart: regular rate and rhythm Lungs: clear to auscultation Airway: Mallampati scale class II Neurological: alert and oriented Last oral intake: >/= 8 hours ASA classification: III Emergent: no Anesthetic plan: proceed Anesthesia type and monitoring: general GIVS and standard monitoring Results Review: All pre-operative results and documents have been reviewed as part of the pre-operative evaluation. Informed Consent: The patient's anesthetic plan and its attendant risks and benefits were discussed with the patient/family/POA. Questions were solicited and answers provided to the satisfaction of the patient/family/POA.
[2024-12-09] MEDS: SIMETHICONE ORAL SUSPENSION 20 MG/0.3 ML 30 ML BOTTLE 1.8 ML PO (10:35)
[2024-12-09] MEDS: LACTATED RINGERS 1,000 ML 150 ML IV CONT (10:35)
--- NOTE | 2024-12-09 10:45 | PM.IMHP ---
H&P: HPI History of Present Illness Date/Time: 12/09/24 10:45 Chief Complaint: Dyspepsia Narrative: The patient has been suffering from epigastric discomfort/fullness for several months, recently exacerbated. She is now referred for EGD. She states having had a cholecystectomy and apparently ERCP for common bile duct stone several years ago. Review of Systems Review of Systems: All systems reviewed & are unremarkable except as noted in HPI and below PMFSH Past Medical History Medical History Depression Osteoarthritis Neuropathy Sleep apnea History of TIA (transient ischemic attack) RLS (restless legs syndrome) Anxiety HTN (hypertension) Surgical History Surgical History Status post right hip replacement History of cholecystectomy History of hysterectomy with bilateral oophorectomy Family History Family History Sibling Patient's sister is in good health Patient's brother is in good health Family history of diabetes mellitus in first degree relative Family history of lung cancer Family history of malignant neoplasm of breast in first degree relative Father Family history of alcoholism Family history of coronary artery disease Mother Family history of pancreatic cancer Family history of diabetes mellitus in first degree relative Other Diabetes mellitus Hypertension Social History Social History Smoking packs per day: 0 Smoking cigarettes per day: 0.0 Years smoked: 10 Smoking pack-years: 0.00 Smoking status: Former smoker Tobacco type: cigarettes Second hand tobacco smoke exposure: No Smoking end date: 02/14/80 Alcohol intake: never Substance use: never Substance use type: does not use Current Housing: Decline to Answer Concerned About Future Housing: Decline to Answer Difficulty Paying Gas/Electric Bills: Decline to Answer Difficulty Paying for Meds: Decline to Answer Currently Unemployed: Decline to Answer Education: Decline to Answer Difficulty w/ Childcare or Family Care: Decline to Answer Living arrangements: alone Occupation/Education: retired Gender identity (if verbalized by the patient): Female Spiritual care concerns: No Meds Home Medications and Allergies Home Medications ?Medication ?Instructions ?Recorded ?Confirmed ?Type fluoxetine 20 mg capsule See Rx Instructions .Route 04/16/24 11/28/24 Rx .COMPLEX #90 caps clonazepam 0.5 mg tablet 0.5 mg PO BID #60 tabs 04/30/24 11/28/24 Rx omeprazole 40 mg capsule,delayed 40 mg PO DAILY #90 caps 04/30/24 11/28/24 Rx release tramadol 50 mg tablet 50 mg PO Q8H PRN pain #30 tabs 07/29/24 11/28/24 Rx amlodipine 5 mg tablet 5 mg PO DAILY #90 tabs 09/20/24 11/28/24 Rx triamcinolone acetonide 0.1 % 1 applic topical BID #80 grams 10/29/24 11/28/24 Rx topical cream Allergies Allergy/AdvReac Type Severity Reaction Status Date / Time No Known Allergies Allergy Verified 12/09/24 10:08 Vital Signs Vital Signs - 24 hr 12/09/24 10:16 Temperature 98.3 F Pulse Rate 87 Respiratory Rate 18 Blood Pressure 125/44 L Pulse Oximetry 98 Oxygen Delivery Room Air Exam Const: General: cooperative and healthy appearing Resp: Effort & Inspection: normal respiratory effort and able to speak in complete sentences Auscultation: clear to auscultation bilaterally Cardio: Rate: regular rate Rhythm: regular rhythm GI: Inspection: normal to inspection GI Palp: No No hepatosplenomegaly present Auscultation: normal bowel sounds Rectal Exam: deferred Skin: General skin exam: normal color Psych: Appearance: grossly normal Mental Status: mental status grossly normal Assessment and Plan Assessment and plan (1) Dyspepsia: Code(s): R10.13 - Epigastric pain Status: Acute Assessment and Plan: The patient is deemed a good candidate for the procedure. Consent signed. Will proceed.
--- NOTE | 2024-12-09 11:03 | S_PTH ---
PATIENT: Robyn Pimentel LOC: [facility] U#:[id number] AGE/SX: 79/F ROOM: RE12/09/[address]: Reese Rose MD : 1945 BED: DIS: 12/09/2024 SPEC #: [id number] RECD: 12/09/24 12:41 STATUS: KATY REQ #: [id number] CHAU: 12/09/24 11:[address]: Reese Rose DEPT: [facility] Surgical RECD BY: Shaylee Esquivel ENTERED: 12/09/24 12:42 SP TYPE: Surgical OTHR DR: Drake Briones MD Tissues: A - Gastric Biopsy B - Gastric Biopsy Procedures: Hematoxylin and Eosin Stain Gross and Microscopic Level 4
[2024-12-09 11:07] VITALS: BP 130/87; PULSE 70; RESP 20; O2SAT 97
[2024-12-09 11:17] VITALS: BP 149/80; PULSE 75; RESP 22; O2SAT 95
[2024-12-09 11:27] VITALS: BP 153/67; PULSE 69; RESP 22; O2SAT 96
== END 2024-12-09 11:34 | disposition home or self-care (01) ==
PROVIDERS: PCP Family Medicine; Referring Provider Physician Assistant; Visit Provider Internal Medicine Gastroenterology
PROC: 0DJ08ZZ Inspection of Upper Intestinal Tract, Via Natural or Artificial Opening Endoscopic (ICD-10-PCS; CPT 43239; principal; 2024-12-09 10:30)
DX: K29.50 Unspecified chronic gastritis without bleeding (principal); I10 Essential (primary) hypertension; G47.30 Sleep apnea, unspecified; G25.81 Restless legs syndrome; F41.9 Anxiety disorder, unspecified; F32.A Depression, unspecified; G62.9 Polyneuropathy, unspecified; M19.90 Unspecified osteoarthritis, unspecified site; Z79.891 Long term (current) use of opiate analgesic; Z98.890 Other specified postprocedural states; Z90.49 Acquired absence of other specified parts of digestive tract; Z87.891 Personal history of nicotine dependence; Z86.73 Personal history of transient ischemic attack (TIA), and cerebral infarction without residual deficits; Z80.1 Family history of malignant neoplasm of trachea, bronchus and lung; Z80.3 Family history of malignant neoplasm of breast; Z80.0 Family history of malignant neoplasm of digestive organs; Z82.49 Family history of ischemic heart disease and other diseases of the circulatory system
CPT/HCPCS: 43239; 88305; J2003; J2704; J7120

== ENCOUNTER 2025-02-10 14:32 | Outpatient (CLI) | payer MEDICARE, SELFPAY ==
--- OUTSIDE RECORDS SUMMARY | 2025-02-10 14:51 | XMS_ITS | Clinical Summary ---
Author Organization [facility] Address [address] [place] [address] Care Team Providers Care Staff Software Engineer Name Role Phone Unavailable Primary Care Provider [...]
--- OUTSIDE RECORDS SUMMARY | 2025-02-10 14:51 | XMS_ITS | Encounter Summary ---
Author Organization [facility] Address [address] [place] [address] Care Team Providers Care [employer] Machine Operator Name Role Phone Unavailable Primary Care Provider Unavailabl e Encounter Details Date Type Department Care Team (Latest Contact Info) Description 12/19/2017 Abstract [facility] , [place] [...]
--- OUTSIDE RECORDS SUMMARY | 2025-02-10 14:51 | XMS_ITS | Patient Health Record ---
Author Organization [facility] [employer] [place] ([address]) Address [address] [place] [address] Care Team Providers Care Paleology Professor Name Role Phone Drake Briones MD Primary Care Provider Viji Oliver Unavailable [phone] Allergies No Known Allergies Reason For Referral No Information Medications Medication SIG (Take, Route, Frequency, Duration) Notes Start Date End Date Status amLODIPine Besylate 5 MG Oral; Duration: 90 Days Active clonazePAM 0.5 MG TAKE 1 TABLET BY FRANNY TH TWICE DAILY Oral; Duration: 30 Days Active traMADol HCl 50 MG TAKE 1 TABLET BY FRANNY TH EVERY 8 HOURS NEEDED FOR PAIN Oral; Duration: 10 Days Active Cetirizine HCl 10 MG 1 tablet Orally Twi ce a day; Duration: 90 days 06/10/2024 Active Omeprazole 20 MG Oral; Duration: 90 Days Active EPINEPHrine 0.3 MG/0.3ML as directed Inj ection as needed; Duration: 30 days Active Social History Tobacco Use: Social History Observation Description Date Details (start date - stop date) Former Smoker NA - NA Tobacco Control (Standard) Question Answer Notes Tobacco use: Former smoker AUDIT-C (Standard) Question Answer Notes Did you have a drink containing alcohol in the p ast year? No Points 0 Interpretation Negative Problems Problem Type SNOMED Code ICD Code Onset Dates Problem Status W/U Status Risk Notes Problem Chronic rhinitis (01693889) Chronic rhinitis (J31.0) Active confirmed Problem Hypertrophy of nasal turbinates (85680896) Hypertrophy of nasal turbinates (J34.3) Active confirmed Problem Urticaria (651722264) Other urticaria (L50.8) Active confirmed Problem Swelling of head (035185649) Localized swelling, mass and lump, head (R22.0) Active confirmed Vital Signs Oximetry 97 % 06/10/2024 Blood pressure diastolic 71 mm Hg 06/10/2024 Height 63 in 06/10/2024 Blood pressure systolic 145 mm Hg 06/10/2024 Weight 171.8 lbs 06/10/2024 BMI 30.43 kg/m2 06/10/2024 Encounters Encounter Location Date Provider Diagnosis [facility] [address] [facility] [address] [place] [phone] 06/10/2024 Viij Duke Other urticaria L50. 8 ; Localized swelling, mass and lump, head R22.0 ; Hypertrophy of nasal turbinates J34.3 ; Chronic rhinitis J31.0 and Elevated blood-pressure reading, without diagnosis of hypertension R03.0 [facility] [address] [place] [phone] 05/07/2024 Viji Duke Other urticaria L50. 8 ; Localized swelling, mass and lump, head R22.0 ; Hypertrophy of nasal turbinates J34.3 ; Chronic rhinitis J31.0 and Elevated blood-pressure reading, without diagnosis of hypertension R03.0 [facility] [address] [facility] [address] [place] [phone] 05/16/2024 Viji Duke Other urticaria L50. 8 and Localized swelling, mass and lump, head R22.0 [facility] [address] [place] [address] 05/07/2024 Viji [facility] [address] [place] [address] 06/13[facility]20[facility] [address] [place] [address] 06/10/2024 Viji [facility] [address] [place] [address] 05/23/2024 Viji Duke Assessments Encounter Date Diagnosis (ICD Code) Assessment Notes Treatment Notes Treatment Clinical Notes Section Notes 05/07/2024 Other urticaria (ICD-10 - L50.8) Robyn presents with complaints of raised, erythematous and pruritic knots on her skin. Symptoms have occurred at random for years without clear trigger. Most recently, an episode in March caused a swollen welt on her neck. She was seen by her PCP who ordered blood work, specific tests/results are unknown. Robyn denies changes to her medication regimen, diet or environment. She denies NSAID, alcohol or opioid use. Robyn feels symptoms have been occurring < 6 weeks throughout her life. - Description/photo review show both typical and atypical presentation of urticaria. Considerations include acute urticaria vs CIU vs angioedema vs other. - Will order CIU work-up for further evaluation, as well as C4. Will obtain records of labs drawn by PCP first. Request sent. - Discussed trial of high dose antihistamines, though Robyn would like to hold off as symptoms do not occur often. - Due to location of swelling near Robyn's neck on photo review, she is to carry an AIE at all times. Education was provided. - Consider biopsy with dermatology, which we discussed. - Follow-up in 4-6 weeks for further evaluation and management 05/07/2024 Localized swelling, mass and lump, head (ICD-10 - R22.0) As above, carry AIE at all times. 06/10/2024 Other urticaria (ICD-10 - L50.8) Robyn presented to her initial visit with complaints of raised, erythematous and pruritic knots on her skin. Symptoms have occurred at random for years without clear trigger. Most recently, an episode in March caused a swollen welt on her neck. She was seen by her PCP who ordered blood work, specific tests/results are unknown. Robyn denies changes to her medication regimen, diet or environment. She denies NSAID, alcohol or opioid use. Robyn feels symptoms have been occurring < 6 weeks throughout her life. - Description/photo review show both typical and atypical presentation of urticaria. Considerations include acute urticaria vs CIU vs angioedema vs other. Recent photos show raised, erythematous wheals more consistent with hives. - Ordered CIU work-up and C4. Not all labs were returned by [facility]. Normal C4 and tryptase, however. Await remainder of work-up. - Discussed trial of high dose antihistamines, though Robyn would like to hold off as symptoms do not occur often. She is agreeable to trial of Zyrtec 10 mg BID. - Due to location of swelling near Robyn's neck on last photo review, she is to carry an AIE at all times. Education was provided. - Consider biopsy with dermatology, which we discussed. - Follow-up in 2-3 months for further evaluation and management 06/10/2024 Localized swelling, mass and lump, head (ICD-10 - R22.0) As above, carry AIE at all times. 05/16/2024 Other urticaria (ICD-10 - L50.8) 05/16/2024 Localized swelling, mass and lump, head (ICD-10 - R22.0) 06/10/2024 Hypertrophy of nasal turbinates (ICD-10 - J34.3) Robyn endorses upper airway symptoms concerning for uncontrolled atopic disease. - Consider obtaining ImmunoCaps in the future 05/07/2024 Hypertrophy of nasal turbinates (ICD-10 - J34.3) Robyn endorses upper airway symptoms concerning for uncontrolled atopic disease. - Robyn last took Zyrtec yesterday. - Consider obtaining ImmunoCaps 05/07/2024 Chronic rhinitis (ICD-10 - J31.0) See plan above 06/10/2024 Chronic rhinitis (ICD-10 - J31.0) See plan above 06/10/2024 Elevated blood-pressure reading, without diagnosis of hypertension (ICD-10 - R03.0) BP elevated today without symptoms of urgency or emergency. Continue serial checks and follow-up with PCP 05/07/2024 Elevated blood-pressure reading, without diagnosis of hypertension (ICD-10 - R03.0) BP elevated today without symptoms of urgency or emergency. Continue serial checks and follow-up with PCP 05/07/2024 Other 06/10/2024 Other Plan Of Treatment Pending Test Test Name Order Date CHRONIC URTICARIA 05/16/2024 ANTI-IGE 05/16/2024 TRYPTASE 05/16/2024 COMPLEMENT COMPONENT C4C 05/16/2024 CU PANEL 05/16/2024 Insurance Providers Payer Name Payer Address Payer Phone Subscriber Number Group Number Insured Name Patient Relationship to Insured Coverage Start Date Coverage End Date [employer] (Medicare) Attention Claims [address] [place] [address] [id number] Robyn Pimentel Self - [place] [address] [id number] Robyn Pimentel Self - patient is the insured Medical (General) History Surgical History Surgery Date(Month/Year) hysterectomy 1985 gallbladder removal 2005 hip replacement 2014 Toe Surgery 2022
[2025-02-10 14:57] LABS: Add Urine Microscopic? NO; Appearance Urine Clear (Clear); Glucose Urine UA Negative (Negative); Leukocyte Esterase Ur Negative LEU/UL (Negative); Nitrate Urine Negative (Negative); Specific Grav Ur 1.026 (1.001-1.035)
== END 2025-02-10 14:33 | disposition home or self-care (01) ==
PROVIDERS: PCP Family Medicine; Visit Provider Student in an Organized Health Care Education/Training Program
DX: R30.0 Dysuria (principal)
CPT/HCPCS: 81003